=== PATIENT | male | born 1950 | race Caucasian/White ===

== ENCOUNTER 2019-11-15 10:51 | Inpatient (IN) | payer OTHER, SELFPAY ==
[2019-11-15] VITALS (11 sets, daily range): BP systolic 161–181; BP diastolic 81–95; PULSE 85–113; RESP 14–20; TEMP 36.7–37.6; O2SAT 93–98; BMI 27.4
--- NOTE | ~2019-11-15 | XR_ITS ---
EXAMINATION: XR chest 2V DATE: 11/19/2019 14:13 INDICATION: Possible right lung mass, COVID 19 positive TECHNIQUE: AP and lateral views of the chest are obtained. COMPARISON: 11/18/2019 FINDINGS: There are minimal airspace opacities at the left costophrenic angle. The nodule questioned on recent chest radiograph is not definitely identified. There is no pleural effusion or pneumothorax . The cardiomediastinal silhouette is normal. There are bridging osteophytes at multiple levels in th e spine, consistent with diffuse idiopathic skeletal hyperostosis (DISH). IMPRESSION: 1. No definite right lower lobe nodule identified. 2. Airspace opacities of the left costophrenic angle, consistent with COVID 19 pneumonia given clinic al history. Reviewed, dictated and finalized at location B. IMPRESSION: 1. No definite right lower lobe nodule identified. 2. Airspace opacities of the left costophrenic angle, consistent with COVID 19 pneumonia given clinical history.
--- NOTE | ~2019-11-15 | XR_ITS ---
EXAMINATION: XR hip LT 2V w AP pelvis DATE: 11/15/2019 11:45 INDICATION: Left hip pain and shortening TECHNIQUE: Anteroposterior view of the pelvis and anteroposterior and cross-table lateral views of th e left hip were obtained. COMPARISON: None. FINDINGS: Transcervical fracture of the proximal left femur with approximately 1.5 cm proximal migration, exter nal rotation and mild varus angulation. The femoral head remains normally located within the left gaviota tabulum. No other fractures identified. Mild bilateral hip osteoarthritis. Prominent hypertrophic abraham nge along the superolateral right acetabulum. IMPRESSION: 1. . Transcervical fracture of the proximal left femur with proximal migration and external rotation. Reviewed, dictated and finalized at location B.
--- NOTE | ~2019-11-15 | XR_ITS ---
XR chest 1V portable DATE: 11/18/2019 12:49 INDICATION: Covid-positive patient. Postoperative fevers. TECHNIQUE: Portable AP chest on 11/18/2019 at 1241 hours COMPARISON: 11/15/2019 AP chest 07/05/2017 two-view chest FINDINGS: There is focal infiltrate or mass density in the right lower lung field. PA and lateral stalin st radiographs are recommended, with CT thorax should the abnormal density persist. The lungs are oth erwise clear of infiltrate or consolidation. Normal heart size. Aortic calcification and minimal unfolding. No hilar or mediastinal enlargement is evident. Diffuse osteopenia. IMPRESSION: Focal infiltrate or mass density, right lower lung; continued follow-up is recommended, w ith initial PA and lateral chest radiographs; CT thorax may be indicated if the density does not reso lve within a short-term interval Reviewed, dictated and finalized at location A. IMPRESSION: Focal infiltrate or mass density, right lower lung; continued follo w-up is recommended, with initial PA and lateral chest radiographs; CT thorax m ay be indicated if the density does not resolve within a short-term interval
--- NOTE | ~2019-11-15 | XR_ITS ---
XR hip LT 1V DATE: 11/16/2019 11:13 INDICATION: Postoperative examination TECHNIQUE: Postoperative AP view only COMPARISON: 11/15/2019 pelvis and left hip FINDINGS: Status post left femoral head and neck resection and left total hip replacement. There is e xpected mild subcutaneous emphysema postoperatively. The pubic symphysis and sacroiliac joints are intact. IMPRESSION: Status post left total hip arthroplasty Reviewed, dictated and finalized at location A.
--- NOTE | ~2019-11-15 | XR_ITS ---
EXAMINATION: XR chest 1V DATE: 11/15/2019 11:45 INDICATION: Chest injury. TECHNIQUE: A single frontal view of the chest was obtained. COMPARISON: Chest 2 views 07/05/2017 FINDINGS: There is mild atelectasis at left lung base. There are mild airspace opacities in right mid and lower lung zones. No pleural effusion or pneumothorax. The heart size is normal. IMPRESSION: 1. Mild airspace opacities in right mid and lower lung zones, consistent with atelectasis versus pneu monia. Mild atelectasis at left lung base. Reviewed, dictated and finalized at location A. IMPRESSION: 1. Mild airspace opacities in right mid and lower lung zones, consistent with a telectasis versus pneumonia. Mild atelectasis at left lung base.
[2019-11-15] MEDS: MORPHINE SULFATE 4 MG/ML INJ IV PUSH ×3 (11:32→20:49)
--- NOTE | 2019-11-15 12:07 | ED.FALL ---
HPI - Fall General Chief Complaint: Fall Stated Complaint: FALL/L HIP PAIN Time Seen by Provider: 11/15/19 11:10 History of Present Illness HPI Narrative: Patient is a 68-year-old male who presents the ER with left hip pain. He was cleaning his pool on a 2 foot ledge when he slipped off that landed on his left side. Did not strike his head or lose consciousness. Sudden onset pain in his left hip. Unable to stand up. No numbness or tingling. Has shortening and external rotation on exam. Related Data Home Medications Medication Instructions Recorded Confirmed losartan 100 mg PO DAILY 11/15/19 11/15/19 Allergies Allergy/AdvReac Type Severity Reaction Status Date / Time No Known Allergies Allergy Verified 11/15/19 11:06 Review of Systems Review of Systems: All systems reviewed & are unremarkable except as noted in HPI and below Musculoskeletal: Musculoskeletal: Reports arthralgias, Denies joint swelling and Denies muscle cramps Neurologic: Denies focal weakness and Denies numbness PMFSH Past Medical History Medical History (Updated 11/15/19 @ 15:47 by Lakshmi Sanabria PA-C) Hypertension Tobacco dependence Surgical History Surgical History No history of previous surgery Social History Social History (Updated 11/15/19 @ 15:47 by Lakshmi Sanabria PA-C) Social History: Surrogate decision maker: Code status: Smoking status: Current some day smoker Second hand tobacco smoke exposure: No Alcohol intake: current Substance use: never Gender identity (if verbalized by the patient): Male Sexual Orientation (if Verbalized by the Patient): Straight or Heterosexual Spiritual care concerns: No Exam Narrative: Exam Narrative: GENERAL: Uncomfortable-appearing, well-nourished, and in no acute distress. HEAD: Normocephalic, atraumatic. ENT: Mucous membranes moist. CHEST: Clear to auscultation. No respiratory distress. HEART: Regular rate and rhythm. Normal peripheral pulses. EXTREMITIES: Shortening and external rotation of the left lower extremity. Tender at the left hip. No knee or ankle tenderness. Strong dorsalis pedis pulse. No sensory deficit in the left lower extremity. Abrasion of the left knee. SKIN: Warm, dry, no rash. NEURO: Alert and oriented x3. Course Course Emergency Course: Patient informed of results. Discussed case with Dr. Torres who would like the patient be on the medical service. Vital Signs Vital signs: Vital Signs Temperature 98.1 F 11/15/19 10:57 Pulse Rate 89 11/15/19 10:57 Respiratory Rate 18 11/15/19 10:57 Blood Pressure 172/93 H 11/15/19 10:57 Pulse Oximetry 98 11/15/19 10:57 Temperature 99.2 F 11/15/19 16:00 Pulse Rate 88 11/15/19 16:00 Respiratory Rate 18 11/15/19 16:00 Blood Pressure 180/85 H 11/15/19 16:00 Pulse Oximetry 96 11/15/19 16:00 MDM - Fall Lab Data Result diagrams: 11/15/19 16:16 11/15/19 16:16 Imaging Data Radiologist's impression: ITS Impressions Chest X-Ray 11/15/19 11:48 IMPRESSION: 1. Mild airspace opacities in right mid and lower lung zones, consistent with atelectasis versus pneumonia. Mild atelectasis at left lung base. Hip/Pelvis X-Ray 11/15/19 11:49 IMPRESSION: 1. . Transcervical fracture of the proximal left femur with proximal migration and external rotation. Discharge Plan Discharge Clinical Impression: Closed hip fracture Patient Disposition: Still a Patient Condition: Stable Discharge Date/Time: 11/15/19 13:57
--- NOTE | 2019-11-15 13:38 | PC.NURSE ---
Attempt to call report, floor unable to take at present. States will have the RN return call bakari.
--- NOTE | 2019-11-15 14:07 | ADMGEN ---
This patient, Jeet Breen, was admitted to 3 [facility] Surg Room 304-01. Patient/family oriented to hospital policies and general routines including ID bracelet, bed and alarms, visiting hours, pain management, procedures, bathroom and other care routines, personal items, smoking policy, room service/diet, and visiting hours. Valuables list has been completed. Information on how to activate the Rapid Response Team has been discussed. Patient/Family are encouraged to report perceived risks to care and to ask questions if they do not understand what they are told or what they should do.
--- NOTE | 2019-11-15 15:01 | PM.IMHP ---
H&P: HPI History of Present Illness Date/Time: 11/15/19 15:01 Chief complaint: hip fracture Narrative: Jeet Breen is a 68 year old male [facility] Past Medical History Medical History Hypertension Surgical History Surgical History No history of previous surgery Social History Social History Smoking status: Current some day smoker Second hand tobacco smoke exposure: No Alcohol intake: current Substance use: never Gender identity (if verbalized by the patient): Male Sexual Orientation (if Verbalized by the Patient): Straight or Heterosexual Spiritual care concerns: No Meds Home Medications and Allergies Home Medications Medication Instructions Recorded Confirmed Type losartan 100 mg PO DAILY 11/15/19 11/15/19 History Allergies Allergy/AdvReac Type Severity Reaction Status Date / Time No Known Allergies Allergy Verified 11/15/19 11:06 Vital Signs Vital Signs - 24 hr 11/15/19 10:57 11/15/19 11:31 11/15/19 12:21 Temperature 36.7 C Pulse Rate 85 99 97 Respiratory Rate 17 17 15 Blood Pressure 181/88 H 166/89 H 161/87 H Pulse Oximetry 96 97 93 11/15/19 12:30 11/15/19 12:31 11/15/19 12:45 Temperature Pulse Rate 100 104 H 93 Respiratory Rate 16 16 14 Blood Pressure 174/95 H Pulse Oximetry 96 95 95 11/15/19 12:46 11/15/19 13:00 Temperature Pulse Rate 91 92 Respiratory Rate 15 20 Blood Pressure 171/95 H Pulse Oximetry 95 Exam Extrem: General: capillary refill normal, no joint enlargement noted, no clubbing, cyanosis or edema and no calf tenderness bilaterally Right lower extremity: normal to inspection, full ROM, normal capillary refill and hip/thigh Details: normal to inspection and normal ROM; no tenderness and no swelling; no cyanosis and no edema Left lower extremity: normal capillary refill, edema, no joint enlargement, hip/thigh Details: tenderness, abnormal ROM Details: pain with active ROM and pain with passive ROM, ecchymosis and crepitus; no abrasions and no lacerations and foot Details: normal capillary refill, normal to inspection, vascular exam Details: dorsalis pedis pulse present, posterior tibial pulse present and normal capillary refill and motor-sensory exam light-touch normal; no tenderness; abnormal ROM and no cyanosis Assessment and Plan Assessment and plan (1) Closed hip fracture: Code(s): S72.009A - Fracture of unspecified part of neck of unspecified femur, initial encounter for closed fracture Status: Acute (2) Femoral neck fracture: Code(s): S72.009A - Fracture of unspecified part of neck of unspecified femur, initial encounter for closed fracture Status: Acute Assessment and Plan: 68 YO MALE WITH HX OF HTN FELL WHILE TRYING TO CLEAN HIS POOL AND NOW HE HAS A DISPLACED FEMORAL NECK FRACTURE. HE DENIES ANY OTHER PAIN. HE WILL REQUIRE LEFT TOTAL HIP REPLACEMENT. DUE TO HIS AGE AND HIS RELATIVELY GOOD HEALTH HE WOULD BE BETTER OFF HAVING A TOTAL HIP OPPOSED TO A KACI ARTHROPLASTY/BIPOLAR PROSTHESIS. WE DISCUSSED THE RISKS AND COMPLICATIONS OF SURGERY INCLUDING INFECTION DVT PE NEURO VASCULAR INJURY, DISLOCATION, LEG LENGTH DIFFERENCE AND THE NEED FOR FURTHER SURGERY. WE ALSO DISCUSSED THE OUTCOME DIFFERENCE BETWEEN A ROUTINE HIP REPLACEMENT AND ONE DONE FOR TRAUMATIC PURPOSES. HE UNDERSTANDS. WE WILL PROCEED ONCE HE HAS BEEN CLEARED BY MEDICINE
--- NOTE | 2019-11-15 15:47 | ECG_ITS ---
Measurements Intervals [place] Rate: 86 P: 48 CO: 198 QRS: -3 QRSD: 122 T: 57 QT: 363 QTc: 436 Interpretive Statements SINUS RHYTHM INTRAVENTRICULAR CONDUCTION DELAY DELAYED PRECORDIAL R/S TRANSITION BORDERLINE ECG Electronically Signed On 11-15-2019 16:46:52 CDT by Jed Victoria D.O.
[2019-11-15 16:23] LABS: Hematocrit 41.7 % (42.0-52.0); Hemoglobin 14.6 g/dL (14.0-18.0); Mean Corpuscular Volume 94.1 fl (80-100); Mean Platelet Volume 10.3 fl (7.4-10.4); Platelet Count Result 170 k/mm3 (150-375); Red Blood Count 4.43 M/mm3 (4.6-6.20); Red Cell Distribution Width 13.1 % (11.5-14.5); White Blood Count 7.4 K/mm3 (4.5-10.0)
[2019-11-15 16:33] LABS: INR 1.1; Prothrombin Time 14.1 Seconds (11.1-14.7)
[2019-11-15 17:19] LABS: Alanine Aminotransferase 78 U/L (4-50); Alkaline Phosphatase 98 U/L (38-126); Anion Gap 11 mmol/L (8-16); Aspartate Amino Transferase 70 U/L (17-59); Bilirubin,Total 0.5 mg/dL (0.2-1.3); Blood Urea Nitrogen 15 mg/dL (9-20); Calcium 8.6 mg/dL (8.4-10.2); Carbon Dioxide 24 mmol/L (22-30); Chloride 103 mmol/L (98-107); Estimated CRCL calculation 69 ml/min; Estimated Glomerular Filt Rate > 60; Glucose 115 mg/dL (75-110); Potassium 3.6 mmol/L (3.4-5.0); Sodium 138 mmol/L (137-145)
[2019-11-15 17:27] LABS: Add Urine Microscopic? YES; Appearance Urine Clear (Clear); Bilirubin Urine Negative (Negative); Blood Urine Negative (Negative); Color Urine Yellow (Yellow); Glucose Urine UA Negative (Negative); Ketones Urine 1+ mg/dL (Negative); Leukocyte Esterase Ur Negative LEU/UL (Negative); Mucus Urine Rare /lpf; Nitrate Urine Negative (Negative); Protein Urine 2+ mg/dL (Negative); Urobilinogen Urine Negative mg/dL (<2.0); WBC Urine 0-3 /hpf
--- NOTE | 2019-11-15 17:30 | PM.IMHP ---
H&P: HPI History of Present Illness Date/Time: 11/15/19 17:30 Chief complaint: Left hip pain after fall. Narrative: Jeet Breen is a 68-year-old male with hypertension who presented to the emergency department earlier today via EMS from home for evaluation of left hip pain after a fall. He was outside cleaning up the pool area, when he lost his balance and fell nearly 2 ft off of a ledge ?I had turned around to look at my tomatoes and lost my footing.? He had immediate pain in his left hip and was unable to get himself up. After perhaps an hour of trying to get his neighbor's attention, someone finally came out and called 911. He was indeed found to have a left hip fracture and is being admitted in this setting. He denies head trauma and loss of consciousness in the fall. He has some abrasions on his left elbow and knee, but sustained no other injuries. With further questioning he has not been feeling very well for about 1 week with generalized malaise, low-grade fever, and poor appetite. Occasionally he has had some shortness of breath as well, but nothing significant. After speaking with his doctor he was set to have a COVID test today. He has no known exposure to those positive for COVID-19. He has not had high fevers or any significant sinus congestion, rhinorrhea, or odynophagia. He has not had chest pain, pleuritic pain, palpitations, or significant cough. No nausea or vomiting, he just has a poor appetite. No anosmia or dysgeusia. At this time his pain is pretty well controlled, but seems to be worse with movement. He denies paresthesias, skin color, temperature changes distal to the fracture. Review of Systems Review of Systems: Narrative: Twelve systems were reviewed with pertinent positives and negatives as per HPI. Weight has remained stable. No history of cardiac or pulmonary disease. He has never had exertional chest pain. No history of venous thromboembolism. He has never had surgery. Except as documented, all other systems were reviewed and are negative. [facility] Past Medical History Medical History (Updated 11/15/19 @ 22:32 by Lakshmi Sanabria PA-C) Hypertension Tobacco dependence Surgical History Surgical History No history of previous surgery Family History Family History (Updated 11/15/19 @ 22:25 by Lakshmi Sanabria PA-C) Other No significant family history Social History Social History (Updated 11/15/19 @ 22:27 by Lakshmi Sanabria PA-C) Social History: Surrogate decision maker: Jr. Breen, son. Code status: Full code. Smoking status: Current some day smoker Second hand tobacco smoke exposure: No Additional smoking assessment comments: He smokes 1 pack of cigarettes every 3 days. Alcohol intake: current Drinks per week: 3 Substance use: never Additional living arrangements comments: Lives in his own home in [place]. Additional occupation/education comments: Retired. Gender identity (if verbalized by the patient): Male Sexual Orientation (if Verbalized by the Patient): Straight or Heterosexual Spiritual care concerns: No Meds Home Medications and Allergies Home Medications Medication Instructions Recorded Confirmed Type losartan 100 mg PO DAILY 11/15/19 11/15/19 History Allergies Allergy/AdvReac Type Severity Reaction Status Date / Time No Known Allergies Allergy Verified 11/15/19 11:06 Vital Signs Vital Signs - 24 hr 11/15/19 10:57 11/15/19 11:31 11/15/19 12:21 Temperature 98.1 F Pulse Rate 85 99 97 Respiratory Rate 17 17 15 Blood Pressure 181/88 H 166/89 H 161/87 H Pulse Oximetry 96 97 93 11/15/19 12:30 11/15/19 12:31 11/15/19 12:45 Temperature Pulse Rate 100 104 H 93 Respiratory Rate 16 16 14 Blood Pressure 174/95 H Pulse Oximetry 96 95 95 11/15/19 12:46 11/15/19 13:00 11/15/19 15:25 Temperature 99.0 F Pulse Rate 91 92 104 H Respira
[2019-11-16] VITALS (21 sets, daily range): BP systolic 132–184; BP diastolic 65–89; PULSE 87–108; RESP 14–20; TEMP 36.3–38.1; O2SAT 91–98
--- NOTE | 2019-11-16 00:21 | PC.NURSE ---
Patient NPO as of this time. All food and drinks removed from bedside.
[2019-11-16 01:52] LABS: SARS-CoV-2 RNA PCR Positive
[2019-11-16 06:25] LABS: Basophils Percent Auto 0.3 % (0.2-1.2); Eosinophils Percent Auto 0.3 % (0-4.4); Hematocrit 41.3 % (42.0-52.0); Hemoglobin 14.2 g/dL (14.0-18.0); Immature Granulocyte Absolute 0.04 K/mm3 (0.00-0.031); Immature Granulocyte Percent A 0.6 % (0-0.5); Lymphocytes Absolute Auto 1.09 K/mm3 (0.9-3.2); Lymphocytes Percent Auto 15.1 % (18.3-44.2); Mean Corpuscular HGB Conc 34.4 g/dl (32-36); Mean Corpuscular Hemoglobin 32.4 pg (26-34); Mean Corpuscular Volume 94.3 fl (80-100); Mean Platelet Volume 10.3 fl (7.4-10.4); Monocytes Absolute Auto 0.3 K/mm3 (0.1-0.6); Monocytes Percent Auto 3.9 % (2.6-8.5); Neutrophils Absolute Auto 5.8 K/mm3 (1.3-6.7); Neutrophils Percent Auto 79.8 % (45.5-73.1); Platelet Count Result 161 k/mm3 (150-375); Red Blood Count 4.38 M/mm3 (4.6-6.20); Red Cell Distribution Width 13.2 % (11.5-14.5); White Blood Count 7.2 K/mm3 (4.5-10.0)
[2019-11-16 06:39] LABS: INR 1.2; Prothrombin Time 14.4 Seconds (11.1-14.7)
[2019-11-16 06:40] LABS: Partial Thromboplastin Time 36.5 SECONDS (22.3-36.8)
--- NOTE | 2019-11-16 06:43 | WPDANESEPP ---
Anes - Eval Pre Procedure Procedure: Operation Date: 11/16/19 08:00 Proposed Procedures p Left Total Hip Arthroplasty - Skyler Torres MD Date/Time: 11/16/19 06:43 Surgeon: Skyler Winslow Pre Op Diagnosis: Left hip pain after fall. Patient Data Age: 68 Gender: M Height: 5 ft 10 in Weight: 86.7 kg Last Vital Signs Temp 37.1 C 11/16/19 04:00 Pulse 108 H 11/16/19 04:00 Resp 20 11/16/19 04:00 BP 150/86 H 11/16/19 04:00 Pulse Ox 96 11/16/19 04:00 Allergies Allergy/AdvReac Type Severity Reaction Status Date / Time No Known Allergies Allergy Verified 11/15/19 11:06 Home Medications Medication Instructions Recorded Confirmed Type losartan 100 mg PO DAILY 11/15/19 11/15/19 History Laboratory Tests 11/15/19 11/15/19 11/15/19 16:16 16:16 16:16 WBC 7.4 K/mm3 K/mm3 (4.5-10.0) RBC 4.43 M/mm3 L M/mm3 (4.6-6.20) Hgb 14.6 g/dL g/dL (14.0-18.0) Hct 41.7 % L % (42.0-52.0) MCV 94.1 fl fl (80-100) MCH 33.0 pg pg (26-34) MCHC 35.0 g/dl g/dl (32-36) RDW 13.1 % % (11.5-14.5) Plt Count 170 k/mm3 k/mm3 (150-375) MPV 10.3 fl fl (7.4-10.4) Immature Gran % (Auto) Neut % (Auto) Lymph % (Auto) [place] % (Auto) Eos % (Auto) Baso % (Auto) Lymph # (Auto) [place] # (Auto) Eos # (Auto) Baso # (Auto) Abs Immat Gran (auto) Absolute Neuts (auto) Absolute Nucleated RBC Nucleated RBC % PT 14.1 Seconds Seconds (11.1-14.7) INR 1.1 APTT 31.0 SECONDS SECONDS (22.3-36.8) Sodium 138 mmol/L mmol/L (137-145) Potassium 3.6 mmol/L mmol/L (3.4-5.0) Chloride 103 mmol/L mmol/L (98-107) Carbon Dioxide 24 mmol/L mmol/L (22-30) Anion Gap 11 mmol/L mmol/L (8-16) BUN 15 mg/dL mg/dL (9-20) Creatinine 0.90 mg/dL mg/dL (0.7-1.3) Estim Creat Clear Calc 69 ml/min ml/min Estimated GFR > 60 (59 - ) Glucose 115 mg/dL H mg/dL (75-110) Calcium 8.6 mg/dL mg/dL (8.4-10.2) Magnesium Ferritin Total Bilirubin 0.5 mg/dL mg/dL (0.2-1.3) AST 70 U/L H U/L (17-59) ALT 78 U/L H U/L (4-50) Alkaline Phosphatase 98 U/L U/L (38-126) Lactate Dehydrogenase C-Reactive Protein Total Protein 7.0 g/dL g/dL (6.3-8.2) Albumin 4.0 g/dL g/dL (3.5-5.1) Urine Color Urine Appearance Urine pH Ur Specific [place] Urine Protein Urine Glucose (UA) Urine Ketones Ur Blood (Man) Urine Nitrate Urine Bilirubin Urine Urobilinogen Leukocyte Esterase Rfl Urine RBC Urine WBC Hyaline Casts Urine Mucus SARS-CoV-2 RNA (RT-PCR) 11/15/19 11/15/19 11/16/19 16:16 17:07 06:07 WBC 7.2 K/mm3 K/mm3 (4.5-10.0) RBC 4.38 M/mm3 L M/mm3 (4.6-6.20) Hgb 14.2 g/dL g/dL (14.0-18.0) Hct 41.3 % L % (42.0-52.0) MCV 94.3 fl fl (80-100) MCH 32.4 pg pg (26-34) MCHC 34.4 g/dl g/dl (32-36) RDW 13.2 % % (11.5-14.5) Plt Count 161 k/mm3 k/mm3 (150-375) MPV 10.3 fl fl (7.4-10.4) Immature Gran % (Auto) 0.6 % H % (0-0.5) Neut % (Auto) 79.8 % H % (45.5-73.1) Lymph % (Auto) 15.1 % L % (18.3-44.2) [place] % (Auto) 3.9 % % (2.6-8.5) Eos % (Auto) 0.3 % % (0-4.4) Baso % (Auto) 0.3 % % (0.2-1.2) Lymph # (Auto) 1.09 K/mm3 K/mm3 (0.9-3.2) [place] # (A
[2019-11-16 07:19] LABS: Alanine Aminotransferase 72 U/L (4-50); Albumin Level 3.8 g/dL (3.5-5.1); Alkaline Phosphatase 85 U/L (38-126); Anion Gap 11 mmol/L (8-16); Aspartate Amino Transferase 64 U/L (17-59); Bilirubin,Total 0.8 mg/dL (0.2-1.3); Blood Urea Nitrogen 16 mg/dL (9-20); Calcium 8.3 mg/dL (8.4-10.2); Carbon Dioxide 22 mmol/L (22-30); Chloride 101 mmol/L (98-107); Estimated CRCL calculation 77 ml/min; Estimated Glomerular Filt Rate > 60; Glucose 118 mg/dL (75-110); Lactate Dehydrogenase 565 U/L (313-618); Magnesium 1.9 mg/dL (1.6-2.3); Potassium 3.3 mmol/L (3.4-5.0); Sodium 134 mmol/L (137-145)
[2019-11-16 07:39] LABS: CRP 16.2 mg/dL (<1.0)
[2019-11-16] MEDS: MORPHINE SULFATE 4 MG/ML INJ IV PUSH (07:40)
[2019-11-16] MEDS: LACTATED RINGERS 1,000 ML 30 ML IV CONT ×2 (08:30→11:00)
--- NOTE | 2019-11-16 08:38 | PM.PNORT ---
Subjective Subjective Date/Time Seen: 11/16/19 08:38 Interval history: PATIENT HAS RECEIVED A NEW DIAGNOSIS OF COVID 19. HE CONTINUES TO BE MEDICALLY STABLE. GIVEN THE URGENCY OF HIS ORTHOPEDIC PROBLEM I FEEL IT IS NECESSARY TO CONTINUE WITH CURRENT DECISION FOR TREATMENT OF DISPLACED FEMORAL NECK FRACTURE IN A PATIENT WHO IS OTHERWISE HEALTHY AND VERY ACTIVE. DELAYING TREATMENT MAY CAUSE INCREASED IN MORBIDITY AND MORTALITY GIVEN HIS ORTHOPEDIC DIAGNOSIS. Objective Data Vital Signs Vital Signs: Vital Signs - 24 hr 11/15/19 10:57 11/15/19 11:31 11/15/19 12:21 Temperature 36.7 C Pulse Rate 85 99 97 Respiratory Rate 17 17 15 Blood Pressure 181/88 H 166/89 H 161/87 H Pulse Oximetry 96 97 93 11/15/19 12:30 11/15/19 12:31 11/15/19 12:45 Temperature Pulse Rate 100 104 H 93 Respiratory Rate 16 16 14 Blood Pressure 174/95 H Pulse Oximetry 96 95 95 11/15/19 12:46 11/15/19 13:00 11/15/19 15:25 Temperature 37.2 C Pulse Rate 91 92 104 H Respiratory Rate 15 20 20 Blood Pressure 171/95 H 179/81 H Pulse Oximetry 95 95 11/15/19 16:00 11/15/19 20:00 11/16/19 00:00 Temperature 37.3 C 37.6 C 37.4 C Pulse Rate 88 113 H 101 H Respiratory Rate 18 20 20 Blood Pressure 180/85 H 179/88 H 184/86 H Pulse Oximetry 96 94 96 11/16/19 04:00 11/16/19 07:47 Temperature 37.1 C 36.8 C Pulse Rate 108 H 96 Respiratory Rate 20 16 Blood Pressure 150/86 H 135/82 Pulse Oximetry 96 96 Intake/Output Intake/Output: Intake & Output 11/13/19 11/14/19 11/15/19 11/16/19 23:59 23:59 23:59 23:59 Intake Total 340 200 Output Total 750 550 Balance -410 -350 Meds/Results Medications: Active Medications Generic Name Dose Route Start Last Admin Trade Name Freq PRN Reason Stop Dose Admin Acetaminophen 650 mg 11/15/19 12:44 Tylenol Tablet PO Q4H PRN Mild Pain (1-3) or Fever Hydrocodone Bitart/Acetaminophen 1 tab 11/15/19 12:44 [place] 5-325 Mg PO Q4H PRN Pain Rated 4-6 Hydralazine HCl 5 mg 11/15/19 22:35 Apresoline Hcl Inj IV PUSH Q6H PRN SBP > 165 or DBP > 105 Lactated Ringer's 1,000 mls @ 30 mls/hr 11/15/19 15:25 Lr - Lactated Ringers Iv IV CONT .Q24H LEXI Losartan Potassium 100 mg 11/16/19 09:00 11/16/19 07:56 Cozaar PO Not Given DAILY LEXI Morphine Sulfate 4 mg 11/15/19 12:44 11/16/19 07:40 Morphine Sulfate Inj IV PUSH 4 mg Q2H PRN Administration Pain Rated 7-10 Ondansetron HCl 4 mg 11/15/19 12:44 Zofran Inj IV PUSH Q4H PRN Nausea Radiology Results: ITS Impressions Chest X-Ray 11/15/19 11:48 IMPRESSION: 1. Mild airspace opacities in right mid and lower lung zones, consistent with atelectasis versus pneumonia. Mild atelectasis at left lung base. Hip/Pelvis X-Ray 11/15/19 11:49 IMPRESSION: 1. . Transcervical fracture of the proximal left femur with proximal migration and external rotation. Labs Labs: Laboratory Results - last 24 hr 11/15/19 11/15/19 11/15/19 16:16 16:16 16:16 WBC 7.4 RBC 4.43 L Hgb 14.6 Hct 41.7 L MCV 94.1 MCH 33.0 MCHC 35.0 RDW 13.1 Plt Count 170 MPV 10.3 Immature Gran % (Auto) Neut % (Auto) Lymph % (Auto) [place] % (Auto) Eos % (Auto) Baso % (Auto) Lymph # (Auto) [place] # (Auto) Eos # (Auto) Baso # (Auto) Abs Immat Gran (auto) Absolute Neuts (auto) Absolute Nucleated RBC Nucleated RBC % PT 14.1 INR 1.1 APTT 31.0 Sodium 138 Potassium 3.6 Chloride 103 Carbon Dioxide 24 Anion Gap 11 BUN 15 Creatinine 0.90 Estim Creat Clear Calc 69 Estimated GFR > 60 Glucose 115 H Calcium 8.6 Magnesium Total Bilirubin 0.5 AST 70 H ALT 78 H Alkaline Phosphatase 98 Lactate Dehydrogenase C-Reactive Protein Total Protein 7.0 Albumin 4.0 Urine Color Urine Appearance Urine pH Ur Specific [place] Urine P
--- NOTE | 2019-11-16 08:50 | WPDANESEFPP ---
Anes - Eval Final PreProcedure Day of Procedure 11/16/19 08:50 Patient weight: overweight Heart: regular rate and rhythm Lungs: clear to auscultation Airway: Mallampati scale class II Neurological: alert and oriented Last oral intake: >/= 8 hours ASA classification: III Emergent: yes Anesthetic plan: proceed Anesthesia type and monitoring: general ETT Informed Consent: Prior to the start of this case, the patient's anesthetic plan of GA with ETT and its attendant risks in this Covid positive patient were discussed at length with the surgeon who insists that this operation be done today. He states the risks for poor outcome due to Covid are not increased if we proceed at this time and there is no other acceptable way to manage this fracture. The OR team will take all precautions available to minimize risk of infection to themselves and others. The risks and benefits were discussed with the patient immediately prior to surgery. Questions were solicited and answers provided to the satisfaction of the patient.
[2019-11-16] MEDS: ceFAZolin SODIUM 1 GM VIAL 2 GM IV PUSH (08:56)
[2019-11-16] MEDS: TRANEXAMIC ACID 1,000 MG/10 ML AMPUL 1000 MG IV PUSH ×2 (09:00→10:11)
--- NOTE | 2019-11-16 09:27 | PC.NURSE ---
To OR per bed, IV 18 LFA. Report given to MEDICAL AFFAIRS MANAGER.
--- NOTE | 2019-11-16 11:42 | SUR.PHASEI ---
Tried to call Dr. Torres's cell for transfer orders to return to the floor.
--- NOTE | 2019-11-16 11:50 | PM.OP ---
Procedure Note - Brief Procedure Note - Brief Date of procedure: 11/16/19 Pre-op diagnosis: Left hip pain after fall. LEFT FEMORAL NECK FRACTURE Post-op diagnosis: same Procedure performed: L KAYCE Anesthesia: GETA Surgeon: Skyler Torres MD Estimated blood loss (mL): 200 Drains: No Complications: No immediate complications Condition: stable Disposition: PACU
--- NOTE | 2019-11-16 11:51 | P.OP_ITS ---
Procedure Note - Detailed Date of procedure: 11/16/19 Pre-op diagnosis: Left hip pain after fall. LEFT FEMORAL NECK FRACTURE Post-op diagnosis: same Procedure performed: LEFT KAYCE Description of procedure: THE PATIENT WAS TAKEN TO THE OPERATING ROOM IN STABLE CONDITION. HE WAS PLACED IN THE LATERAL DECUBITUS AND THE LEFT LOWER EXTREMITY WAS PREPPED AND DRAPED IN THE STERILE FASHION. INCISION WAS MADE IN THE POSTERI OR LATERAL SIDE OF THE HIP, DOWN TO THE FASCIA LAYER. THE FASCIA WAS INCISED. THE HIP WAS EXPOSED. THE SHORT EXTERNAL ROTATORS WERE EXPOSED AND THERE WAS A LARGE HEMATOMA. THE CAPSULE WAS INCISED EXPOSING THE FRACTURE. THE FEMORAL HEAD WAS REMOVED. AN OSTEOTOMY WAS MADE TO THE EMORAL NECK ABOUT 1 CM PROXIMAL TO THE LESSER TROCHANTER. THE ACETABULUM WAS EXPOSED. THERE WAS MODERATE DJD SEEN. THE ACETABULUM WAS REAMED TO 49 MM. A 49 MM TRIAL WAS PLACED IN 35 DEG OF ABDUCTION AND ANTEVERSION WAS IN ALIRNMENT WITH THE TYRANS ACETABULAR LIGAMENT. THE FIT WAS EXCELLENT. THE TRIAL WAS REMOVED. A 50 MM BIOMET G7 COMPONENT WAS THEN TAPPED IN TO PLACE IN 35 DEG OF ABDUCTION AND ANTEVERSION IN ALIGNMENT WITH THE TRANSVERSE ACETABULAR LIGAMENT. 2 SCREWS WERE PLACED THAT HAD EXCELLENT PURCHASE. THE ACETABULAR LINER WAS PLACED AND CHECKED FOR STABILITY. NEXT THE FEMUR WAS PREPARED WITH INITIAL CANAL FINDER THEN SEQUENCIAL BROACHING TILL A 12 BROACH FIT WELL IN 15 OF ANTE VERSION. A +3 STANDAR OFFSET NECK WITH 36 MM HEAD TRIAL WAS PLACED. THE ONESIMO TEST WAS EXCELLENT AND THE STABILTY IN FLEXION AND ROATION WAS EXCELLENT. LEG LENTHS WERE GROSSLY EQUAL. TRIAL WERE REMOVED. A TAPERLOC BIOMET 12 STEM WAS PLACED WITH A STANDARD OFFSET NECK THE FIT WAS EXCELLENT IN 15 DEG OF ANTEVERSION. A +3 CERAMIC 36 MM FEMORAL HEAD WAS PLACED. THE HIP WAS TRIALED AND THRE STABILITY WAS EXCELLENT WERE THE LEG LENGTHS AND THE SCHUK TEST. THE WOUND WAS IRRIGATED WITH STERILE BETADINE AND WATER FOR 3 MIN. THEN WASHED AGIN. THE CAPSULE AND THE EXTERNAL ROTATORS WERE APPROXIMATED WITH NUMBER 1 VICRYL. THE FASCIA WITH No 2 QUIL AND THE SUB CUTANEOUS LAYER WITH 2-0 ABSORBABLE SUTURE WITH A RUNNING 2-0 SUBCUTICULAR LAYER WELL. DERMABOND WAS PLACED AND STERILE DRESSING WAS APPLIED. PATIENT WAS PLACED BACK ON TO THE SUPINE POSITION AND WAS EXTUBATED. Anesthesia: GETA Surgeon: Skyler Torres MD Estimated blood loss (mL): 450 Drains: No Complications: No immediate complications Condition: stable Disposition: PACU
[2019-11-16 13:01] LABS: Hematocrit 38.2 % (42.0-52.0); Hemoglobin 13.1 g/dL (14.0-18.0)
--- NOTE | 2019-11-16 14:11 | PM.IMPN ---
Progress Note: A&P Assessment and Plan (1) Closed left hip fracture: Code(s): S72.002A - Fracture of unspecified part of neck of left femur, initial encounter for closed fracture Status: Acute Assessment and Plan: Patient sustained a mechanical fall on 11/15/2019. Hip x-ray showed transcervical fracture of the proximal left femur with proximal migration external rotation. He underwent surgical repair by Dr. Torres. He tolerated the procedure well and his pain is well controlled. Weight bearing, incision care, DVT prophylaxis per Dr. Torres Analgesics as needed for pain PT and OT consult is appreciated. Patient lives at home and is independent in ADLs. He would like to return home with a walker. Will evaluate his progress with therapy. (2) Hypertension: Qualifiers: Hypertension type: essential hypertension Qualified Code(s): I10 - Essential (primary) hypertension Code(s): I10 - Essential (primary) hypertension Status: Acute Assessment and Plan: blood pressures reviewed today and have been elevated in the 170s. Postoperatively, BP has been better controlled in the 130s. Increase is probably secondary to pain. Continue losartan and monitor daily. Hydralazine available p.r.n. with parameters. (3) Tobacco dependence: Code(s): F17.200 - Nicotine dependence, unspecified, uncomplicated Status: Acute Assessment and Plan: Patient smokes 1 pack of cigarettes approximately every 3 days. Smoking cessation has been discussed and patient understands (4) COVID-19: Code(s): U07.1 - COVID-19 Status: Acute Assessment and Plan: Symptoms ongoing for approximately 10-12 days. Tested positive on 11/15/2019. He is feeling much better. He is afebrile. Prior to procedure, he was tolerating room air. He is now on 1 L O2 postoperatively. Continue isolation precautions At this time, will hold on initiating IV dexamethasone as I suspect Oxygen requirements are related to postoperative state and not respiratory infection. Monitor respiratory status closely. Acetaminophen as needed for fever. Bronchodilators and mucolytic therapy as needed. Subjective Date/time seen: 11/16/19 14:11 Interval history: Date of service: 11/16/2019 Mr. Breen is a 68-year-old male with a history hypertension tobacco dependence who is seen in follow-up for closed left hip fracture After sustaining a mechanical fall on 11/15/2019. He has just returned from surgery performed by Dr. Torres. He tolerated the procedure well and has no pain at this time. He had been feeling ill for about 10 days with low-grade fevers and occasional cough. He was found to be positive for COVID-19. He is doing well from that standpoint and denies any fevers, shortness of breath, cough, loss of taste or smell, nausea, vomiting, or body aches. He had a little bit of diarrhea the past couple days at home but has not had a bowel movement in 2 days. He has not eaten much since yesterday because he was NPO for surgery. He denies dysuria or hematuria. Review of Systems Review of Systems: Narrative: A 12 point review of systems was reviewed with pertinent positives and negatives as per HPI. Exam Narrative: Exam Narrative: Mr. Breen is a well-nourished 69-year-old male who is lying supine in bed. He appears comfortable and is in no acute respiratory distress. HR 108, BP 150/86, R 20, T 98.8?, 96% on room air Neuro: awake, alert and oriented x4, speech clear, no focal neuro deficits noted HEENMT: normocephalic, atraumatic, EOMI, sclerae anicteric, moist oral mucosa, tongue midline, nares patent Neck: supple, no lymphadenopathy Respiratory: clear to auscultation bilaterally, nonlabored breathing Cardio: regular rate, regular rhythm with S1-S2 Abdomen: nondistended, normoactive bowel sounds, soft, nontender to palpation Extremities: left hip with bandage that is C/D
[2019-11-16] MEDS: ceFAZolin 2 GM/D5W 50 ML 2 GM/50 ML BAG IVPB (17:02)
[2019-11-16] MEDS: DOCUSATE SODIUM 100 MG CAPSULE PO (17:02)
[2019-11-16] MEDS: ACETAMINOPHEN 325 MG TABLET 650 MG PO (19:54)
[2019-11-16] MEDS: RIVAROXABAN 10 MG TABLET PO (21:32)
[2019-11-17] VITALS (10 sets, daily range): BP systolic 109–170; BP diastolic 64–91; PULSE 54–111; RESP 18–20; TEMP 36.7–39.4; O2SAT 90–96
[2019-11-17] MEDS: ceFAZolin 2 GM/D5W 50 ML 2 GM/50 ML BAG IVPB ×2 (00:11→08:14)
[2019-11-17] MEDS: ACETAMINOPHEN 325 MG TABLET 650 MG PO ×2 (04:25→21:32)
[2019-11-17 06:27] LABS: Basophils Percent Auto 0.2 % (0.2-1.2); Hematocrit 33.9 % (42.0-52.0); Hemoglobin 11.9 g/dL (14.0-18.0); Immature Granulocyte Absolute 0.08 K/mm3 (0.00-0.031); Immature Granulocyte Percent A 0.9 % (0-0.5); Lymphocytes Absolute Auto 0.93 K/mm3 (0.9-3.2); Lymphocytes Percent Auto 10.5 % (18.3-44.2); Mean Corpuscular HGB Conc 35.1 g/dl (32-36); Mean Corpuscular Hemoglobin 33.1 pg (26-34); Mean Corpuscular Volume 94.2 fl (80-100); Mean Platelet Volume 10.7 fl (7.4-10.4); Monocytes Absolute Auto 0.3 K/mm3 (0.1-0.6); Monocytes Percent Auto 3.3 % (2.6-8.5); Neutrophils Absolute Auto 7.6 K/mm3 (1.3-6.7); Neutrophils Percent Auto 85.1 % (45.5-73.1); Platelet Count Result 147 k/mm3 (150-375); Red Cell Distribution Width 12.9 % (11.5-14.5); White Blood Count 8.9 K/mm3 (4.5-10.0)
[2019-11-17 06:41] LABS: Alanine Aminotransferase 60 U/L (4-50); Albumin Level 3.3 g/dL (3.5-5.1); Alkaline Phosphatase 66 U/L (38-126); Anion Gap 7 mmol/L (8-16); Aspartate Amino Transferase 86 U/L (17-59); Bilirubin,Total 0.8 mg/dL (0.2-1.3); Blood Urea Nitrogen 21 mg/dL (9-20); Calcium 8.1 mg/dL (8.4-10.2); Carbon Dioxide 26 mmol/L (22-30); Chloride 99 mmol/L (98-107); Estimated CRCL calculation 63 ml/min; Estimated Glomerular Filt Rate > 60; Glucose 124 mg/dL (75-110); Lactate Dehydrogenase 546 U/L (313-618); Potassium 3.6 mmol/L (3.4-5.0); Sodium 132 mmol/L (137-145)
[2019-11-17 07:04] LABS: CRP 21.7 mg/dL (<1.0)
[2019-11-17] MEDS: DOCUSATE SODIUM 100 MG CAPSULE PO ×2 (08:14→17:08)
[2019-11-17] MEDS: CELECOXIB 200 MG CAPSULE PO (08:14)
[2019-11-17] MEDS: LOSARTAN POTASSIUM 100 MG TABLET PO (08:14)
--- NOTE | 2019-11-17 10:42 | PM.IMPN ---
Progress Note: A&P Assessment and Plan (1) Closed left hip fracture: Qualifiers: Encounter type: initial encounter Qualified Code(s): S72.002A - Fracture of unspecified part of neck of left femur, initial encounter for closed fracture Code(s): S72.002A - Fracture of unspecified part of neck of left femur, initial encounter for closed fracture Status: Acute Assessment and Plan: Patient sustained a mechanical fall on 11/15/2019. Hip x-ray showed transcervical fracture of the proximal left femur with proximal migration and external rotation. He underwent surgical repair by Dr. Torres on 11/16/2019. He tolerated the procedure well and his pain is well controlled. Weight bearing, incision care, DVT prophylaxis per Dr. Torres Analgesics as needed for pain PT and OT consult is appreciated. Patient lives at home and is independent in ADLs. He would like to return home with a walker. Will evaluate his progress with therapy. (2) Hypertension: Qualifiers: Hypertension type: essential hypertension Qualified Code(s): I10 - Essential (primary) hypertension Code(s): I10 - Essential (primary) hypertension Status: Acute Assessment and Plan: Blood pressures reviewed today and have improved in the 130-150 systolic range. Prior elevated readings probably secondary to pain. Continue losartan and monitor daily. (3) Tobacco dependence: Code(s): F17.200 - Nicotine dependence, unspecified, uncomplicated Status: Acute Assessment and Plan: Patient smokes 1 pack of cigarettes approximately every 3 days. Smoking cessation has been discussed and patient understands (4) COVID-19: Code(s): U07.1 - COVID-19 Status: Acute Assessment and Plan: Symptoms ongoing for approximately 10-12 days. Tested positive on 11/15/2019. He is feeling much better. He had a fever of 102.9 early this morning but has remained afebrile since. He is maintaining adequate oxygenation on room air. Continue isolation precautions Patient is not a candidate for dexamethasone or remdesivir given onset of symptoms and lack of oxygen requirement. Acetaminophen as needed for fever. Bronchodilators and mucolytic therapy as needed. (5) Urinary retention: Code(s): R33.9 - Retention of urine, unspecified Status: Acute Assessment and Plan: Probably secondary to anesthesia. Patient reports that he was having some frequency and hesitancy last night, therefore was bladder scanned which showed >500cc residual urine. Straight cath returned 425 cc. Following this, patient Has been able to urinate on his own. He did complain of mild dysuria. UA on 11/15/2019 was unremarkable. Closely monitor I&Os. Will repeat UA with reflex given complaints of dysuria Subjective Date/time seen: 11/17/19 10:42 Interval history: Date of service: 11/17/2019 Mr. Breen is a 68-year-old male with a history of hypertension and tobacco dependence who is seen in follow-up for closed left hip fracture after sustaining a mechanical fall on 11/15/2019. He underwent surgical repair on 11/16/[address] Torres. His pain is well controlled today. At rest, he has no pain whatsoever. He complains of some discomfort with movement or with transferring. He reported some issues with urinary retention Last night. He has been able to urinate on his own today and denies urgency, hesitancy, or frequency. He endorsed very mild dysuria. No hematuria. He has not had a bowel movement. He did not eat much of his breakfast today because he did not like it. He denies abdominal pain, nausea, vomiting, fever, or chills. He denies shortness of breath, cough, LOMELI, or chest pain. Review of Systems Review of Systems: Narrative: A 12 point review of systems was reviewed with pertinent positives and negatives as per HPI. Exam Narrative: Exam Narrative: Mr. Breen is a we
--- NOTE | 2019-11-17 10:51 | P.PNAN_ITS ---
Anes - Prog Note Post-Op Date/Time: 11/17/19 10:51 Cardiovascular status: normal Respiratory status: normal Airway patency: baseline Mental status: baseline Post-Op hydration status: normal Vital Signs: Last Vital Signs Temp 37.0 C 11/17/19 08:00 Pulse 101 H 11/17/19 08:00 Resp 20 11/17/19 08:00 BP 141/91 H 11/17/19 08:00 Pulse Ox 94 11/17/19 08:00 Pain Score (VAS): 4 I/O: Intake & Output 11/16/19 11/17/19 11/17/19 23:59 07:59 15:59 Intake Total 670 450 50 Output Total 725 725 Balance -55 -275 50 Laboratory Tests 11/17/19 06:15 11/17/19 06:15 11/16/19 11/17/19 11/17/19 12:51 06:15 06:15 WBC RBC Hgb 13.1 L Hct 38.2 L MCV MCH MCHC RDW Plt Count MPV Immature Gran % (Auto) Neut % (Auto) Lymph % (Auto) [place] % (Auto) Eos % (Auto) Baso % (Auto) Lymph # (Auto) [place] # (Auto) Eos # (Auto) Baso # (Auto) Abs Immat Gran (auto) Absolute Neuts (auto) Absolute Nucleated RBC Nucleated RBC % Sodium 132 L Potassium 3.6 Chloride 99 Carbon Dioxide 26 Anion Gap 7 L BUN 21 H Creatinine 1.00 Estim Creat Clear Calc 63 Estimated GFR > 60 Glucose 124 H Calcium 8.1 L Ferritin 1440.00 H Total Bilirubin 0.8 AST 86 H ALT 60 H Alkaline Phosphatase 66 Lactate Dehydrogenase 546 C-Reactive Protein 21.7 H Total Protein 6.0 L Albumin 3.3 L 11/17/19 06:15 WBC 8.9 RBC 3.60 L Hgb 11.9 L Hct 33.9 L MCV 94.2 MCH 33.1 MCHC 35.1 RDW 12.9 Plt Count 147 L MPV 10.7 H Immature Gran % (Auto) 0.9 H Neut % (Auto) 85.1 H Lymph % (Auto) 10.5 L [place] % (Auto) 3.3 Eos % (Auto) 0.0 Baso % (Auto) 0.2 Lymph # (Auto) 0.93 [place] # (Auto) 0.3 Eos # (Auto) 0.0 Baso # (Auto) 0.0 Abs Immat Gran (auto) 0.08 H Absolute Neuts (auto) 7.6 H Absolute Nucleated RBC 0.0 Nucleated RBC % 0.0 Sodium Potassium Chloride Carbon Dioxide Anion Gap BUN Creatinine Estim Creat Clear Calc Estimated GFR Glucose Calcium Ferritin Total Bilirubin AST ALT Alkaline Phosphatase Lactate Dehydrogenase C-Reactive Protein Total Protein Albumin Post-procedural complaints: none Patient Feedback: Patient satisfied with anesthetic care.
[2019-11-17] MEDS: polyethylene glycoL 3350 17 GM POWD.PACK PO (11:36)
[2019-11-17] MEDS: SODIUM CHLORIDE 0.9% IV 500 ML 999 ML IV CONT (11:36)
--- NOTE | 2019-11-17 13:15 | PM.PNORT ---
Progress Note: A&P Additional Plan POD 1 DOING WELL ASIDE FROM SYNCOPAL EPISODE. HIS PAIN IS WELL CONTROLLED. CONTINUE PT IF ABLE TO WALK WITHOUT DIZZINESS. Subjective Subjective Date/Time Seen: 11/17/19 13:15 POD 1 DOING WELL. NO CALF PAIN. HAD SYNCOPAL EPISODE TODAY. NOW STABLE HGB 11 Exam Extrem: Other: VSS AFEBRILE DRESSING DRY NV INTACT CALF SOFT NON TENDER Objective Data Vital Signs Vital Signs: Vital Signs - 24 hr 11/16/19 13:40 11/16/19 14:00 11/16/19 14:40 Temperature 36.5 C 36.5 C Pulse Rate 102 H 105 H Respiratory Rate 18 16 Blood Pressure 132/87 136/89 Pulse Oximetry 95 97 97 11/16/19 16:42 11/16/19 18:19 11/16/19 19:54 Temperature 36.6 C 36.6 C 38.1 C H Pulse Rate 87 96 Respiratory Rate 18 18 Blood Pressure 135/78 135/82 Pulse Oximetry 93 91 11/16/19 20:00 11/16/19 21:40 11/16/19 23:57 Temperature 38.1 C H 36.8 C 37.3 C Pulse Rate 88 95 Respiratory Rate 18 18 Blood Pressure 141/86 H 153/79 H Pulse Oximetry 93 94 11/17/19 04:00 11/17/19 04:25 11/17/19 05:41 Temperature 39.4 C H 39.4 C H 37.2 C Pulse Rate 54 L Respiratory Rate 18 Blood Pressure 138/85 Pulse Oximetry 93 11/17/19 08:00 11/17/19 11:13 11/17/19 11:15 Temperature 37.0 C Pulse Rate 101 H 111 H Respiratory Rate 20 Blood Pressure 141/91 H 120/67 109/64 Pulse Oximetry 94 Intake/Output Intake/Output: Intake & Output 11/14/19 11/15/19 11/16/19 11/17/19 23:59 23:59 23:59 23:59 Intake Total 340 1020 1100 Output Total 750 7595 725 Balance -410 -255 375 Meds/Results Medications: Active Medications Generic Name Dose Route Start Last Admin Trade Name Freq PRN Reason Stop Dose Admin Acetaminophen 650 mg 11/16/19 12:34 11/17/19 04:25 Tylenol Tablet PO 650 mg Q6H PRN Administration Mild Pain (1-3) or Fever Hydrocodone Bitart/Acetaminophen 1 tab 11/16/19 12:34 11/17/19 00:10 [place] 7.5-325 Mg PO 1 tab Q3H PRN Administration Pain Rated 4-6 Albuterol 2 puff 11/16/19 14:32 Proventil Hfa INHALATION QIDRT PRN Shortness Of Breath Celecoxib 200 mg 11/17/19 09:00 11/17/19 08:14 Celebrex PO 200 mg DAILY LEXI Administration Diazepam 5 mg 11/16/19 12:34 Valium Po PO Q6H PRN Anxiety/Muscle Spasm Docusate Sodium 100 mg 11/16/19 17:00 11/17/19 08:14 Colace Capsule PO 100 mg BID [facility] Administration Guaifenesin 600 mg 11/16/19 14:32 Mucinex 12 Hr Tab PO Q12HR PRN Cough Losartan Potassium 100 mg 11/16/19 09:00 11/17/19 08:14 Cozaar PO 100 mg DAILY [facility] Administration Magnesium Hydroxide 30 ml 11/16/19 12:34 Milk Of Magnesia PO BID PRN Constipation Morphine Sulfate 3 mg 11/16/19 12:34 Morphine Sulfate Inj IV PUSH Q3H PRN Pain Rated 7-10 Naloxone HCl 0.1 mg 11/16/19 12:34 Narcan IV PUSH Q2M PRN Opiate Reversal Oxycodone/Acetaminophen 1 tablet 11/16/19 12:34 Percocet 5-325 Mg PO Q4H PRN Breakthrough Pain Polyethylene Glycol 17 gm 11/17/19 11:00 11/17/19 11:36 Miralax PO 17 gm QAM LEXI Administration Rivaroxaban 10 mg 11/16/19 21:00 11/16/19 21:32 Xarelto PO 12/20/19 17:01 10 mg DAILY@1700 [facility] Administration Radiology Results: ITS Impressions Chest X-Ray 11/15/19 11:48 IMPRESSION: 1. Mild airspace opacities in right mid and lower lung zones, consistent with atelectasis versus pneumonia. Mild atelectasis at left lung base. Hip/Pelvis X-Ray 11/15/19 11:49 IMPRESSION: 1. . Transcervical fracture of the proximal left femur with proximal migration and external rotation. Hip X-Ray 11/16/19 15:29 IMPRESSION: Status post left total hip arthroplasty Labs Labs: Laboratory Results - last 24 hr 11/16/19 11/17/19 11/17/19 12:51 06:15 06:15 WBC RBC Hgb 13.1 L Hct 38.2 L MCV MCH MCHC RDW Plt Count MPV Immature Gran % (A
--- NOTE | 2019-11-17 13:40 | PC.NURSE ---
At 11:11, I was called into the room by physical therapist, Travis. He stated that the patient had passed out and had to be helped back to the chair. Upon entering the room, I observed the patient sitting in the chair and answering questions that Travis was asking him. Vitals were immediately taken on the patient and I called TY Vidales to notify her of what had happened.
[2019-11-17 14:15] LABS: Add Urine Microscopic? YES; Appearance Urine Clear (Clear); Bilirubin Urine Negative (Negative); Blood Urine 2+ (Negative); Color Urine Yellow (Yellow); Glucose Urine UA Negative (Negative); Hyaline Casts Urine 15-19 /lpf; Ketones Urine Trace mg/dL (Negative); Leukocyte Esterase Ur Negative LEU/UL (Negative); Mucus Urine Rare /lpf; Nitrate Urine Negative (Negative); Protein Urine 1+ mg/dL (Negative); Specific Grav Ur 1.019 (1.001-1.035); Urobilinogen Urine Negative mg/dL (<2.0); WBC Urine 0-3 /hpf
[2019-11-17] MEDS: RIVAROXABAN 10 MG TABLET PO (17:08)
[2019-11-18] VITALS (11 sets, daily range): BP systolic 80–161; BP diastolic 54–91; PULSE 81–117; RESP 16–18; TEMP 36.8–37.6; O2SAT 93–96
[2019-11-18 06:21] LABS: Hematocrit 31.1 % (42.0-52.0); Hemoglobin 10.7 g/dL (14.0-18.0); Mean Corpuscular HGB Conc 34.4 g/dl (32-36); Mean Corpuscular Hemoglobin 32.3 pg (26-34); Mean Platelet Volume 11.2 fl (7.4-10.4); Platelet Count Result 142 k/mm3 (150-375); Red Blood Count 3.31 M/mm3 (4.6-6.20); Red Cell Distribution Width 12.8 % (11.5-14.5); White Blood Count 7.7 K/mm3 (4.5-10.0)
[2019-11-18] MEDS: ACETAMINOPHEN 325 MG TABLET 650 MG PO ×2 (06:23→17:43)
[2019-11-18 06:32] LABS: Anion Gap 6 mmol/L (8-16); Blood Urea Nitrogen 22 mg/dL (9-20); Carbon Dioxide 28 mmol/L (22-30); Chloride 97 mmol/L (98-107); Estimated CRCL calculation 87 ml/min; Estimated Glomerular Filt Rate > 60; Glucose 111 mg/dL (75-110); Potassium 3.4 mmol/L (3.4-5.0); Sodium 131 mmol/L (137-145)
[2019-11-18] MEDS: DOCUSATE SODIUM 100 MG CAPSULE PO ×2 (08:08→17:39)
[2019-11-18] MEDS: LOSARTAN POTASSIUM 100 MG TABLET PO (08:08)
[2019-11-18] MEDS: CELECOXIB 200 MG CAPSULE PO (08:08)
[2019-11-18] MEDS: polyethylene glycoL 3350 17 GM POWD.PACK PO (08:08)
[2019-11-18] MEDS: SODIUM CHLORIDE 0.9% IV 1,000 ML 999 ML IV CONT (11:18)
--- NOTE | 2019-11-18 12:24 | PM.IMPN ---
Progress Note: A&P Assessment and Plan (1) Closed left hip fracture: Qualifiers: Encounter type: initial encounter Qualified Code(s): S72.002A - Fracture of unspecified part of neck of left femur, initial encounter for closed fracture Code(s): S72.002A - Fracture of unspecified part of neck of left femur, initial encounter for closed fracture Status: Acute Assessment and Plan: Patient sustained a mechanical fall on 11/15/2019. Hip x-ray showed transcervical fracture of the proximal left femur with proximal migration and external rotation. He underwent surgical repair by Dr. Torres on 11/16/2019. He tolerated the procedure well and his pain is well controlled. Weight bearing, incision care, DVT prophylaxis per Dr. Torres Analgesics as needed for pain PT and OT consult is appreciated. Patient lives at home and is independent in ADLs. He would like to return home with a walker. Will evaluate his progress with therapy. (2) Pre-syncope: Code(s): R55 - Syncope and collapse Status: Acute Assessment and Plan: Patient had an episode of lightheadedness while ambulating with PT on 11/17/2019 during which time he felt sweaty and thought that he might faint. He was moved to a chair and felt better shortly after sitting down. He was able to recall the entire event. He did not eat his breakfast that morning and had not been drinking much water. He was found to be orthostatic at that time. He received a 500 ml fluid bolus and blood pressures improved. He denies being in any significant pain at that time. Patient felt lightheaded while walking with PT again today but did not feel that he was going to faint. Suspect this is secondary to orthostasis from dehydration/volume depletion. (3) Orthostatic hypotension: Code(s): I95.1 - Orthostatic hypotension Status: Acute Assessment and Plan: Patient noted to be orthostatic at time of episode detailed above. Suspect this is secondary to volume depletion given poor PO intake, likely due to viral illness. Administer 1L IV fluid bolus and then continue gentle maintenace fluids; monitoring closely for evidence of fluid overload with COVID-19. Apply Chon hose. Monitor orthostatics each shift. (4) Hypertension: Qualifiers: Hypertension type: essential hypertension Qualified Code(s): I10 - Essential (primary) hypertension Code(s): I10 - Essential (primary) hypertension Status: Acute Assessment and Plan: Blood pressures reviewed and initially elevated this morning 150-160s but declined after ambulation and have ranged 80-113. Prior elevated readings probably secondary to pain. Continue losartan at this time as patient has had several elevated BP readings. Monitor closely for any signs of hypotension but anticipate improvement with fluid resuscitation (5) Tobacco dependence: Code(s): F17.200 - Nicotine dependence, unspecified, uncomplicated Status: Acute Assessment and Plan: Patient smokes 1 pack of cigarettes approximately every 3 days. Smoking cessation has been discussed and patient understands (6) COVID-19: Code(s): U07.1 - COVID-19 Status: Acute Assessment and Plan: Symptoms ongoing for approximately 10-12 days. Tested positive on 11/15/2019. He is feeling much better. He had a fever of 102.9 on 6 in the morning and 102.7 last night. He is maintaining adequate oxygenation on room air. Continue isolation precautions Patient is not a candidate for dexamethasone or remdesivir given duration of symptoms and lack of oxygen requirement. Acetaminophen as needed for fever. Bronchodilators and mucolytic therapy as needed. Suspect fevers are related to COVID-19 but will evaluate CXR and blood cultures given duration of symptoms. Trend acute phase reactants (7) Urinary retention: Code(s): R33.9 - Retention of urine, unspecified
[2019-11-18] MEDS: SODIUM CHLORIDE 0.9% IV 1,000 ML 75 ML IV CONT (12:49)
[2019-11-18 14:26] LABS: Lactate Dehydrogenase 541 U/L (313-618)
[2019-11-18 14:52] LABS: CRP 36.7 mg/dL (<1.0)
[2019-11-18] MEDS: RIVAROXABAN 10 MG TABLET PO (17:39)
[2019-11-19] MEDS: SODIUM CHLORIDE 0.9% IV 1,000 ML 75 ML IV CONT (02:16)
[2019-11-19 03:50] VITALS: BP 159/89; PULSE 96; RESP 18; TEMP 37; O2SAT 92
[2019-11-19 06:15] LABS: Hematocrit 26.7 % (42.0-52.0); Hemoglobin 9.3 g/dL (14.0-18.0); Mean Corpuscular HGB Conc 34.8 g/dl (32-36); Mean Corpuscular Hemoglobin 32.5 pg (26-34); Mean Corpuscular Volume 93.4 fl (80-100); Mean Platelet Volume 11.2 fl (7.4-10.4); Platelet Count Result 154 k/mm3 (150-375); Red Blood Count 2.86 M/mm3 (4.6-6.20); Red Cell Distribution Width 12.8 % (11.5-14.5); White Blood Count 6.5 K/mm3 (4.5-10.0)
[2019-11-19 06:48] LABS: Alanine Aminotransferase 59 U/L (4-50); Albumin Level 2.7 g/dL (3.5-5.1); Alkaline Phosphatase 59 U/L (38-126); Anion Gap 6 mmol/L (8-16); Aspartate Amino Transferase 89 U/L (17-59); Bilirubin,Total 0.6 mg/dL (0.2-1.3); Blood Urea Nitrogen 17 mg/dL (9-20); Calcium 7.6 mg/dL (8.4-10.2); Carbon Dioxide 27 mmol/L (22-30); Chloride 102 mmol/L (98-107); Estimated CRCL calculation 87 ml/min; Estimated Glomerular Filt Rate > 60; Glucose 98 mg/dL (75-110); Lactate Dehydrogenase 544 U/L (313-618); Potassium 3.1 mmol/L (3.4-5.0); Sodium 135 mmol/L (137-145)
[2019-11-19 08:00] VITALS: BP 138/83; BP 155/80; PULSE 102; RESP 16; TEMP 37.1; O2SAT 98
[2019-11-19] MEDS: CELECOXIB 200 MG CAPSULE PO (09:02)
[2019-11-19] MEDS: DOCUSATE SODIUM 100 MG CAPSULE PO ×2 (09:02→16:41)
[2019-11-19] MEDS: LOSARTAN POTASSIUM 100 MG TABLET PO (09:02)
[2019-11-19] MEDS: POTASSIUM CHLORIDE 20 MEQ TABLET 40 MEQ PO (09:03)
[2019-11-19] MEDS: polyethylene glycoL 3350 17 GM POWD.PACK PO (09:03)
[2019-11-19 12:00] VITALS: BP 131/80; PULSE 89; RESP 14; TEMP 36.3; O2SAT 96
--- NOTE | 2019-11-19 12:22 | PM.IMPN ---
Progress Note: A&P Assessment and Plan (1) Closed left hip fracture: Qualifiers: Encounter type: initial encounter Qualified Code(s): S72.002A - Fracture of unspecified part of neck of left femur, initial encounter for closed fracture Code(s): S72.002A - Fracture of unspecified part of neck of left femur, initial encounter for closed fracture Status: Acute Assessment and Plan: Patient sustained a mechanical fall on 11/15/2019. Hip x-ray showed transcervical fracture of the proximal left femur with proximal migration and external rotation. He underwent surgical repair by Dr. Torres on 11/16/2019. He tolerated the procedure well and his pain is well controlled. Weight bearing, incision care, DVT prophylaxis per Dr. Torres. Continue analgesics as needed for pain. PT and OT consult is appreciated. Patient lives at home and is independent in ADLs. He would like to return home with a walker. Will evaluate his progress with therapy. (2) COVID-19: Code(s): U07.1 - COVID-19 Status: Acute Assessment and Plan: Symptoms ongoing for approximately 10-12 days. Tested positive on 11/15/2019. He is feeling much better. He had a fever of 102.9 on 11/16 in the morning and 102.7 overnight 11/16. Fevers have resolved today. He is maintaining adequate oxygenation on room air. Continue isolation precautions. Continue supportive care with tylenol as needed for fever, mucolytics, and bronchodilators. Continue to monitor acute phase reactants. He is not a candidate for dexamethasone or remdesivir given duration of symptoms and lack of oxygen requirement. Repeat CXR and blood cultures were drawn due to the presence of fever. His fever has resolved. Blood cultures are pending. Repeat 2 view CXR given portable findings of possible infiltrate vs mass in right lower lung. Encourage incentive spirometry given post-op status. (3) Abnormal chest xray: Code(s): R93.89 - Abnormal findings on diagnostic imaging of other specified body structures Status: Acute Assessment and Plan: CXR demonstrated focal infiltrate or mass in the right lower lung field. PA and lateral radiographs were recommended with CT thorax considered should this persist. 2 view CXR was ordered and is pending. (4) Pre-syncope: Code(s): R55 - Syncope and collapse Status: Acute Assessment and Plan: Resolved. Patient had an episode of lightheadedness while ambulating with PT on 11/17/2019 during which time he felt sweaty and thought that he might faint. He was moved to a chair and felt better shortly after sitting down. He was able to recall the entire event. He did not eat his breakfast that morning and had not been drinking much water. He was found to be orthostatic at that time. He received fluid bolus and blood pressures improved. He denies being in any significant pain at that time. It is likely that these symptoms were secondary to orthostasis from dehydration/volume depletion. Orthostasis has resolved and he had no further lightheadedness or dizziness with activity today. (5) Orthostatic hypotension: Code(s): I95.1 - Orthostatic hypotension Status: Acute Assessment and Plan: Resolved. Patient noted to be orthostatic at time of episode detailed above. Suspect this is secondary to volume depletion given poor PO intake, likely due to viral illness. He received fluid bolus and gentle maintenance fluids. Orthostatic hypotension has resolved on repeat orthostatic vitals and he his no longer having any dizziness or lightheadedness with standing. Continue OSVALDO hose. Continue to encourage fall precautions. (6) Hypertension: Qualifiers: Hypertension type: essential hypertension Qualified Code(s): I10 - Essential (primary) hypertension Code(s): I10 - Essential (primary) hypertension Status: Acute Assessment and Plan: Blood pressures reviewed and are re
--- NOTE | 2019-11-19 14:06 | PC.NURSE ---
Pt had orthostatic BPs completed on this date... Supine 138/83 Sitting 131/80 Standing 131/80
[2019-11-19 16:00] VITALS: BP 156/83; PULSE 94; RESP 16; TEMP 36.6; O2SAT 96
--- NOTE | 2019-11-19 16:28 | PM.PNORT ---
Progress Note: A&P Additional Plan POD 3 DOING WELL. NO PROBLEMS WITH COVID DIAGNOSIS. PATIENT IS MOSTLY ASYMPTOMATIC. RECOMMEND CONTINUE PT. WILL SIGN OFF FOR NOW. HE WILL F/U IN 6 WEEKS. 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 NEG HOMANS SIGN Objective Data Vital Signs Vital Signs: Vital Signs - 24 hr 11/18/19 20:00 11/18/19 20:05 11/18/19 20:10 Temperature 37.1 C Pulse Rate 97 Respiratory Rate 18 Blood Pressure 134/69 134/68 125/69 Pulse Oximetry 94 11/18/19 23:58 11/19/19 03:50 11/19/19 08:00 Temperature 36.8 C 37.0 C 37.1 C Pulse Rate 81 96 102 H Respiratory Rate 18 18 16 Blood Pressure 156/79 H 159/89 H 138/83 Pulse Oximetry 95 92 98 11/19/19 12:00 Temperature 36.3 C L Pulse Rate 89 Respiratory Rate 14 Blood Pressure 131/80 Pulse Oximetry 96 Intake/Output Intake/Output: Intake & Output 11/16/19 11/17/19 11/18/19 11/19/19 23:59 23:59 23:59 23:59 Intake Total 1020 3080 3500 1660 Output Total 1275 1925 1775 300 Balance -255 1155 1725 1360 Meds/Results Medications: Active Medications Generic Name Dose Route Start Last Admin Trade Name Freq PRN Reason Stop Dose Admin Acetaminophen 650 mg 11/16/19 12:34 11/18/19 17:43 Tylenol Tablet PO 650 mg Q6H PRN Administration Mild Pain (1-3) or Fever Hydrocodone Bitart/Acetaminophen 1 tab 11/16/19 12:34 11/18/19 20:13 [place] 7.5-325 Mg PO 1 tab Q3H PRN Administration Pain Rated 4-6 Albuterol 2 puff 11/16/19 14:32 Proventil Hfa INHALATION QIDRT PRN Shortness Of Breath Celecoxib 200 mg 11/17/19 09:00 11/19/19 09:02 Celebrex PO 200 mg DAILY LEXI Administration Diazepam 5 mg 11/16/19 12:34 Valium Po PO Q6H PRN Anxiety/Muscle Spasm Docusate Sodium 100 mg 11/16/19 17:00 11/19/19 09:02 Colace Capsule PO 100 mg BID LEXI Administration Guaifenesin 600 mg 11/16/19 14:32 Mucinex 12 Hr Tab PO Q12HR PRN Cough Losartan Potassium 100 mg 11/16/19 09:00 11/19/19 09:02 Cozaar PO 100 mg DAILY LEXI Administration Magnesium Hydroxide 30 ml 11/16/19 12:34 Milk Of Magnesia PO BID PRN Constipation Morphine Sulfate 3 mg 11/16/19 12:34 Morphine Sulfate Inj IV PUSH Q3H PRN Pain Rated 7-10 Naloxone HCl 0.1 mg 11/16/19 12:34 Narcan IV PUSH Q2M PRN Opiate Reversal Oxycodone/Acetaminophen 1 tablet 11/16/19 12:34 Percocet 5-325 Mg PO Q4H PRN Breakthrough Pain Polyethylene Glycol 17 gm 11/17/19 11:00 11/19/19 09:03 Miralax PO 17 gm QAM LEXI Administration Rivaroxaban 10 mg 11/16/19 21:00 11/18/19 17:39 Xarelto PO 12/20/19 17:01 10 mg DAILY@1700 LEXI Administration Radiology Results: ITS Impressions Hip/Pelvis X-Ray 11/15/19 11:49 IMPRESSION: 1. . Transcervical fracture of the proximal left femur with proximal migration and external rotation. Hip X-Ray 11/16/19 15:29 IMPRESSION: Status post left total hip arthroplasty Chest X-Ray 11/19/19 14:40 IMPRESSION: 1. No definite right lower lobe nodule identified. 2. Airspace opacities of the left costophrenic angle, consistent with COVID 19 pneumonia given clinical history. Labs Labs: Laboratory Results - last 24 hr 11/19/19 11/19/19 11/19/19 05:50 05:50 05:50 WBC 6.5 RBC 2.86 L Hgb 9.3 L Hct 26.7 L MCV 93.4 MCH 32.5 MCHC 34.8 RDW 12.8 Plt Count 154 MPV 11.2 H Sodium 135 L Potassium 3.1 L Chloride 102 Carbon Dioxide 27 Anion Gap 6 L BUN 17 Creatinine 0.70 Estim Creat Clear Calc 87 Estimated GFR > 60 Glucose 98 Calcium 7.6 L Ferritin 1320.00 H Total Bilirubin 0.6 AST 89 H ALT 59 H Alkaline Phosphatase 59 Lactate Dehydrogenase 544 C-Reactive Protein 2
[2019-11-19] MEDS: RIVAROXABAN 10 MG TABLET PO (16:41)
[2019-11-19 20:00] VITALS: BP 153/104; BP 165/89; BP 174/94; PULSE 112; PULSE 114; PULSE 96; RESP 20; TEMP 37.2; O2SAT 93; O2SAT 94; O2SAT 98
[2019-11-19] MEDS: ACETAMINOPHEN 325 MG TABLET 650 MG PO (22:41)
[2019-11-20] VITALS (8 sets, daily range): BP systolic 146–159; BP diastolic 87–101; PULSE 85–101; RESP 16–20; TEMP 36.4–37.2; O2SAT 93–97
[2019-11-20 06:01] LABS: Hemoglobin 9.4 g/dL (14.0-18.0); Mean Corpuscular HGB Conc 34.8 g/dl (32-36); Mean Corpuscular Hemoglobin 32.8 pg (26-34); Mean Corpuscular Volume 94.1 fl (80-100); Platelet Count Result 212 k/mm3 (150-375); Red Blood Count 2.87 M/mm3 (4.6-6.20); Red Cell Distribution Width 12.9 % (11.5-14.5); White Blood Count 7.5 K/mm3 (4.5-10.0)
[2019-11-20 06:14] LABS: Alanine Aminotransferase 138 U/L (4-50); Albumin Level 2.8 g/dL (3.5-5.1); Alkaline Phosphatase 63 U/L (38-126); Anion Gap 5 mmol/L (8-16); Aspartate Amino Transferase 178 U/L (17-59); Bilirubin,Total 0.8 mg/dL (0.2-1.3); Blood Urea Nitrogen 17 mg/dL (9-20); Calcium 7.9 mg/dL (8.4-10.2); Carbon Dioxide 28 mmol/L (22-30); Chloride 103 mmol/L (98-107); Estimated CRCL calculation 87 ml/min; Estimated Glomerular Filt Rate > 60; Glucose 103 mg/dL (75-110); Lactate Dehydrogenase 635 U/L (313-618); Potassium 3.1 mmol/L (3.4-5.0); Sodium 136 mmol/L (137-145)
[2019-11-20 06:20] LABS: CRP 23.1 mg/dL (<1.0)
[2019-11-20] MEDS: CELECOXIB 200 MG CAPSULE PO (08:50)
[2019-11-20] MEDS: POTASSIUM CHLORIDE 20 MEQ TABLET 40 MEQ PO (08:51)
[2019-11-20] MEDS: LOSARTAN POTASSIUM 100 MG TABLET PO (08:51)
[2019-11-20] MEDS: DOCUSATE SODIUM 100 MG CAPSULE PO (08:51)
[2019-11-20] MEDS: polyethylene glycoL 3350 17 GM POWD.PACK PO (08:52)
[2019-11-20 08:53] LABS: Hepatitis B Surface Antigen Negative (Negative)
[2019-11-20 08:58] LABS: HAV RESULT Negative (Negative); Hepatitis B Core IgM Result Negative (Negative)
[2019-11-20 09:10] LABS: Hepatitis C Virus Antibody Negative (Negative)
--- NOTE | 2019-11-20 14:24 | PM.DS ---
DS: Admitting Diagnosis Admitting Diagnosis Admitting Diagnosis: Left hip pain after fall. DS: Discharge Diagnosis Discharge Diagnosis (1) Closed left hip fracture: Qualifiers: Encounter type: initial encounter Qualified Code(s): S72.002A - Fracture of unspecified part of neck of left femur, initial encounter for closed fracture Code(s): S72.002A - Fracture of unspecified part of neck of left femur, initial encounter for closed fracture Status: Acute Assessment and Plan: Discharge Summary (Date of service 11/20/19): Mr. Breen is a 68 y.o. male with PMH significant for hypertension and tobacco dependence who presented to the emergency department after sustaining a mechanical fall on 11/15/2019. Hip x-ray showed transcervical fracture of the proximal left femur with proximal migration and external rotation. He underwent surgical repair by Dr. Torres on 11/16/2019. He tolerated the procedure well and and pain was well-controlled. He tested positive for COVID-19 but was never hypoxic and treated conservatively. He was orthostatic due to volume depletion given poor PO intake with viral illness. He was given gentle IV fluids and orthostasis resolved. He thought he had a dark bowel movement but never had any further bowel movements for guaiac testing prior to discharge. He was advised to monitor closely for any evidence of hematochezia or melena. Hemoglobin and hematocrit did decrease but more likely due to surgery. LFTs were elevated and hepatitis panel negative. LFT elevation was likely related to COVID-19. He will need to follow-up outpatient for repeat CBC and CMP in 1 week to check H&H, potassium, and LFTs. He was discharged in stable condition on the afternoon of 11/20/19. (2) COVID-19: Code(s): U07.1 - COVID-19 Status: Acute Assessment and Plan: Symptoms ongoing for approximately 10-12 days. Tested positive on 11/15/2019. He was never hypoxic and was treated with supportive care. (3) Abnormal chest xray: Code(s): R93.89 - Abnormal findings on diagnostic imaging of other specified body structures Status: Acute Assessment and Plan: CXR demonstrated focal infiltrate or mass in the right lower lung field. PA and lateral radiographs were recommended with CT thorax considered should this persist. 2 view CXR was ordered with no definite right lower lobe nodule. He will need to follow-up outpatient for repeat imaging after resolution of COVID for repeat CXR/CT. (4) Pre-syncope: Code(s): R55 - Syncope and collapse Status: Acute Assessment and Plan: Resolved. Secondary to orthostasis. (5) Orthostatic hypotension: Code(s): I95.1 - Orthostatic hypotension Status: Acute Assessment and Plan: Resolved. Orthostasis was felt to be due to volume depletion given poor PO intake in the setting of viral illness/insensible losses from fever. He received IV fluid hydration and orthostasis resolved. OSVALDO hose were continued and recommended at discharge. (6) Hypertension: Qualifiers: Hypertension type: essential hypertension Qualified Code(s): I10 - Essential (primary) hypertension Code(s): I10 - Essential (primary) hypertension Status: Acute Assessment and Plan: Blood pressures were acceptably controlled. Losartan was continued. (7) Tobacco dependence: Code(s): F17.200 - Nicotine dependence, unspecified, uncomplicated Status: Acute Assessment and Plan: Patient smokes 1 pack of cigarettes approximately every 3 days. Smoking cessation was discussed and patient understands the need for immediate smoking cessation. (8) Urinary retention: Code(s): R33.9 - Retention of urine, unspecified Status: Resolved Assessment and Plan: Resolved and likely secondary to anesthesia. (9) Hypokalemia: Code(s): E87.6 - Hypokalemia Statu
--- NOTE | 2019-11-20 15:16 | PC.NURSE ---
TY Ryan, declined pt receiving flu vaccine due to covid status. Check with pt PCP on when he should receive the vax.
== END 2019-11-20 17:08 | disposition home or self-care (01) | DRG 469 ==
LOC: ANHED 12:22 → ANH3MEDSUR 14:19
PROVIDERS: Orthopaedic Surgery; Physician Assistant; Admitting Provider Internal Medicine; Emergency Provider Emergency Medicine; PCP Family Medicine; Visit Provider Physician Assistant
PROC: 0SRB02A Replacement of Left Hip Joint with Metal on Polyethylene Synthetic Substitute, Uncemented, Open Approach (ICD-10-PCS; CPT 27130; principal; 2019-11-16 08:00)
DX: S72.032A Displaced midcervical fracture of left femur, initial encounter for closed fracture (principal); U07.1 COVID-19; I10 Essential (primary) hypertension; F17.210 Nicotine dependence, cigarettes, uncomplicated; W18.39XA Other fall on same level, initial encounter; S50.312A Abrasion of left elbow, initial encounter; S80.212A Abrasion, left knee, initial encounter; R93.89 Abnormal findings on diagnostic imaging of other specified body structures; R33.0 Drug induced retention of urine; T41.45XA Adverse effect of unspecified anesthetic, initial encounter; I95.1 Orthostatic hypotension; E87.6 Hypokalemia
CPT/HCPCS: 36415; 71045; 71046; 73501; 73502; 80048; 80053; 80074; 81001; 82728; 83615; 83735; 85014; 85018; 85025; 85027; 85610; 85730; 86140; 87040; 87635; 93005; 96374; 97110; 97116; 97161; 97165; 97530; 97535; 99285; A9270; C1713; C1776; C9803; J0131; J0171; J0330; J0690; J1100; J1170; J2270; J2370; J2405; J2704; J2710; J2795; J3010; J7030; J7040; J7120; U0003

== ENCOUNTER 2020-05-28 09:40 | Outpatient (CLI) | payer OTHER, SELFPAY ==
--- NOTE | ~2020-05-28 | US_ITS ---
. EXAMINATION: US aorta [facility] DATE: 05/28/2020 10:13 INDICATION: Abdominal aortic aneurysm screening. TECHNIQUE: Grayscale, color Doppler, and pulsed Doppler images of the aorta and common iliac arteries were obtained. COMPARISON: None. FINDINGS: The aorta is normal in caliber and demonstrates atherosclerosis. The right common iliac artery is nor mal in caliber. The left common iliac artery is normal in caliber. IMPRESSION: 1. No abdominal aortic aneurysm. Reviewed, dictated and finalized at location A.
== END 2020-05-28 09:41 | disposition home or self-care (01) ==
PROVIDERS: PCP Internal Medicine; Visit Provider Internal Medicine
DX: Z87.891 Personal history of nicotine dependence (principal)
CPT/HCPCS: 76706

== ENCOUNTER 2024-02-12 14:36 | Inpatient (IN) | payer OTHER, SELFPAY ==
[2024-02-12] VITALS (12 sets, daily range): BP systolic 137–173; BP diastolic 68–88; PULSE 82–107; RESP 15–22; TEMP 36.6; O2SAT 98–100; BMI 19.1; BMI 17.7
--- NOTE | ~2024-02-12 | XR_ITS ---
EXAMINATION: XR chest 1V portable DATE: 02/16/2024 10:33 INDICATION: Right lung mass status post bronchoscopy. TECHNIQUE: A single frontal view of the chest was obtained on 2 radiographs. COMPARISON: Chest 2 views 02/12/2024, chest CT 02/13/2024 FINDINGS: There are chronic reticular opacities in the lower lung zones. There is complete opacificat ion of right lung upper lobe with volume loss. No pleural effusion or pneumothorax. The heart size is normal. IMPRESSION: 1. Stable complete opacification of right lung upper lobe with volume loss, consistent with malignanc y and atelectasis. 2. Mild chronic interstitial lung disease. Reviewed, dictated and finalized at location A. ISTICAL CONSULTANT IMPRESSION: 1. Stable complete opacification of right lung upper lobe with volume loss, con sistent with malignancy and atelectasis. 2. Mild chronic interstitial lung disease.
--- NOTE | ~2024-02-12 | XR_ITS ---
XR chest 2V Ordering provider: Jose Antonio Mahoney MD History: 73 years Male with . sob . Comparison: None. FINDINGS: MEDIASTINUM: The cardiac silhouette is not enlarged. LUNGS: Opacification the right upper lobe area suggestive of atelectasis versus pneumonia. Underlying emphysematous changes of the lungs. No effusions or pneumothorax. OTHER: No free air under the diaphragm. Degenerative changes of the spine. IMPRESSION: Right upper lobe atelectasis versus pneumonia. Follow-up to resolution is advised to exclude underlyi ng mass. Reviewed, dictated and finalized at location A. OPAEDIC GENERAL IMPRESSION: Right upper lobe atelectasis versus pneumonia. Follow-up to resolution is advis ed to exclude underlying mass.
--- NOTE | ~2024-02-12 | CT_ITS ---
EXAMINATION: CT chest abdomen w con DATE: 02/13/2024 12:25 INDICATION: Right lung mass. TECHNIQUE: Computed tomography (CT) of the chest and abdomen was performed with 75 mL Omnipaque 350 i ntravenous contrast. Automated exposure control and iterative reconstruction technique were employed. The dose-length product was 329.02 mGy-cm. COMPARISON: Chest 2 views 02/12/2024 FINDINGS: CHEST CT: There is mild emphysema. There are scattered peripheral reticular opacities in the lungs, likely manager operations joceline. There is mild bronchiectasis in the inferior lungs. There is a 7.6 x 5.6 cm mass in right lung u pper lobe with occlusion of the right upper lobe bronchus and invasion of the right mainstem bronchus . There is collapse of right lung upper lobe. No pleural effusion. The heart size is normal. There ar e coronary artery calcifications. No pericardial effusion. There is kyphosis of thoracic spine. There are bridging endplate osteophytes at multiple levels in the spine, consistent with diffuse idiopathi c skeletal hyperostosis (DISH). There are old healed right rib fractures. ABDOMEN CT: The liver demonstrates focal steatosis at the hilum. The gallbladder is normal. There is a 7 mm hypod ense mass in the peripheral spleen, likely benign. The pancreas and adrenal glands are normal. There are cysts in the kidneys measuring up to 2.4 cm on the left. There is a 4 mm stone in right kidney. T here are 2 stones in left kidney measuring up to 5 mm. There are no dilated loops of bowel. There are no pathologically enlarged lymph nodes. There is no free intraperitoneal fluid. There is a chronic c ompression fracture of L1. There is severe lower lumbar spondylosis. IMPRESSION: 1. 7.6 cm mass in right lung upper lobe with invasion of right mainstem bronchus, consistent with yessy basilio bronchogenic carcinoma. Bronchoscopy is recommended for diagnosis. 2. Mild emphysema and mild chronic interstitial lung disease. Reviewed, dictated and finalized at location A. RIGGER IMPRESSION: 1. 7.6 cm mass in right lung upper lobe with invasion of right mainstem bronchu s, consistent with primary bronchogenic carcinoma. Bronchoscopy is recommended for diagnosis. 2. Mild emphysema and mild chronic interstitial lung disease.
--- NOTE | 2024-02-12 19:50 | ECG_ITS ---
Test Date: 2024-02-12 19:56:05 Measurements Intervals [place] Rate: 92 P: 67 MI: 196 QRS: 18 QRSD: 111 T: 78 QT: 357 QTc: 443 Interpretive Statements SINUS RHYTHM WITH OCCASIONAL VENTRICULAR PREMATURE COMPLEXES MODERATE INTRAVENTRICULAR CONDUCTION DELAY [110+ ms QRS DURATION] No previous ECG available for comparison Electronically Signed On 02-13-2024 15:07:46 [employer]NING IN[employer] by Jared Rodriges M.D.
[2024-02-12 20:19] LABS: Basophils Absolute Auto 0.1 K/mm3 (0.0-0.1); Basophils Percent Auto 0.4 % (0.2-1.2); Eosinophils Absolute Auto 0.3 K/mm3 (0-0.3); Eosinophils Percent Auto 2.3 % (0-4.4); Hematocrit 31.4 % (42.0-52.0); Hemoglobin 10.1 g/dL (14.0-18.0); Immature Granulocyte Absolute 0.07 K/mm3 (0.00-0.031); Immature Granulocyte Percent A 0.5 % (0-0.5); Lymphocytes Absolute Auto 1.92 K/mm3 (0.9-3.2); Lymphocytes Percent Auto 13.7 % (18.3-44.2); Mean Corpuscular HGB Conc 32.2 g/dl (32-36); Mean Corpuscular Hemoglobin 30.6 pg (26-34); Mean Corpuscular Volume 95.2 fl (80-100); Mean Platelet Volume 9.9 fl (7.4-10.4); Monocytes Absolute Auto 0.7 K/mm3 (0.1-0.6); Monocytes Percent Auto 4.6 % (2.6-8.5); Neutrophils Percent Auto 78.5 % (45.5-73.1); Platelet Count Result 301 k/mm3 (150-375); Red Cell Distribution Width 14.5 % (11.5-14.5)
[2024-02-12 20:22] LABS: Add Urine Microscopic? NO; Appearance Urine Clear (Clear); Bilirubin Urine Negative (Negative); Blood Urine Negative (Negative); Color Urine Yellow (Yellow); Glucose Urine UA Negative (Negative); Ketones Urine Negative (Negative); Leukocyte Esterase Ur Negative LEU/UL (Negative); Nitrate Urine Negative (Negative); Protein Urine Negative (Negative)
[2024-02-12 20:32] LABS: Lactic Acid Reflex 1.6 mmol/L (0.7-2.0)
[2024-02-12 20:33] LABS: Alanine Aminotransferase 21 U/L (6-50); Albumin Level 3.4 g/dL (3.5-5.1); Alkaline Phosphatase 87 U/L (38-126); Anion Gap 2 mmol/L (4-12); Aspartate Amino Transferase 25 U/L (17-59); Bilirubin,Total 0.7 mg/dL (0.2-1.3); Blood Urea Nitrogen 11 mg/dL (9-20); Calcium 9.9 mg/dL (8.4-10.2); Carbon Dioxide 35 mmol/L (22-30); Chloride 102 mmol/L (98-107); Estimated CRCL calculation 49 ml/min; Estimated Glomerular Filt Rate > 60; Glucose 144 mg/dL (65-110); Potassium 3.1 mmol/L (3.4-5.0); Sodium 139 mmol/L (137-145)
[2024-02-12 20:34] LABS: Lipase 29 U/L (23-300); Magnesium 2.2 mg/dL (1.6-2.3)
[2024-02-12 20:45] LABS: NT Pro B Type Natriuretic Pept 1050 pg/mL (19.9-100); Troponin I < 0.012 ng/mL (0.000-0.034)
[2024-02-12 21:18] LABS: Procalcitonin 0.2 ng/mL
--- NOTE | 2024-02-12 21:24 | ED.GENADULT ---
HPI - General Adult General Chief complaint: Shortness of Breath/Dyspnea Stated complaint: cloud in my head for 50 days Time Seen by Provider: 02/12/24 19:31 History of Present Illness HPI narrative: patient is a 73-year-old gentleman presents emergency department with chief complaint of shortness of breath with exertion. Patient reports that he does smoke cigarettes reports over the last 50 days he has been having increasing shortness of breath with exertion the patient reports that he has been treated with amoxicillin without improvement reports that he continues to lose weight and reports that he has had a rash over his entire body for some period of time as well Related Data Allergies Allergy/AdvReac Type Severity Reaction Status Date / Time No Known Allergies Allergy Verified 02/12/24 14:37 Review of Systems Review of Systems: A 10 system review of systems was completed on the patient and is negative except for what is stated in the HPI. Nursing and ancillary documentation was reviewed. [facility] Past Medical History Medical History Abnormal chest xray Closed hip fracture Closed left hip fracture COVID-19 COVID-19 virus RNA detected (11/15/19) Femoral neck fracture Hypertension Overweight (BMI 25.0-29.9) Tobacco dependence Surgical History Surgical History History of left hip replacement 2020 Family History Family History Other No significant family history Social History Social History Social History: Surrogate decision maker: Jr. Breen, son. Code status: Full code. Smoking packs per day: 0.1 Smoking cigarettes per day: 2.0 Years smoked: 50 Smoking pack-years: 5.00 Smoking status: Current some day smoker Second hand tobacco smoke exposure: No Alcohol intake: current Drinks per week: 3 Alcohol use details: social Substance use: never Substance use type: does not use Lack of Transportation: No Lack of Food: Never True Current Housing: I Have Housing Concerned About Future Housing: No Difficulty Paying Gas/Electric Bills: No Difficulty Paying for Meds: No Currently Unemployed: No Difficulty w/ Childcare or Family Care: No Living arrangements: alone Additional living arrangements comments: Lives in his own home in [place]. Additional occupation/education comments: Retired. Gender identity (if verbalized by the patient): Male Sexual Orientation (if Verbalized by the Patient): Straight or Heterosexual Spiritual care concerns: No Agree to blood products: No Exam Narrative: GENERAL: Well-appearing, well-nourished, and in no acute distress. HEAD: Normocephalic, atraumatic. EYES: PERRLA and EOMI. ENT: Nares clear, no rhinorrhea or epistaxis. Mucous membranes moist. NECK: Supple. CHEST: Clear to auscultation. No respiratory distress. HEART: Regular rate and rhythm. No murmur heard. Normal peripheral pulses. ABDOMEN: Soft, nontender, nondistended, normal active bowel sounds. EXTREMITIES: Normal range of motion. No edema. SKIN: Warm, dry, diffuse rash over the trunk that has been excoriated. NEURO: No focal deficits. Alert and oriented x3. PSYCH: Normal mood and affect. Course Vital Signs Vital signs: Vital Signs Temperature 36.6 C 02/12/24 14:40 Pulse Rate 107 H 02/12/24 14:40 Respiratory Rate 20 02/12/24 14:40 Blood Pressure 173/88 H 02/12/24 14:40 Pulse Oximetry 99 02/12/24 14:40 Oxygen Delivery Room Air 02/12/24 14:40 Temperature 36.6 C 02/12/24 14:40 Pulse Rate 107 H 02/12/24 14:40 Respiratory Rate 20 02/12/24 14:40 Blood Pressure 173/88 H 02/12/24 14:40 Pulse Oximetry 99 02/12/24 14:40 Oxygen Delivery Room Air 02/12/24 20:08 Medical Decision Making [facility] Narrative Medical decision making narrative: differential diagnosis includes pneumonia, CHF, upper respiratory infection chest x-ray showed a right upper lobe infiltrate. White blood cell count was elevated at 14 troponin was negative BNP was slightly elevated at 1050. patient was given Rocephin and Zithromax blood cultures were obtained. The case was discussed with the hospitalist the Patient will be admitted for further care Vital Signs Vital Signs: Vital Signs Temperature 36.6 C 02/12/24 14:40 Pulse Rate 107 H 02/12/24 14:40 Respiratory Rate 20 02/12/24 14:40 Blood Pressure 173/88 H 02/12/24 14:40 Pulse Oximetry 99 02/12/24 14:40 Oxygen Delivery Room Air 02/12/24 14:40 Temperature 36.6 C 02/12/24 14:40 Pulse Rate 107 H 02/12/24 14:40 Respiratory Rate 20 02/12/24 14:40 Blood Pressure 173/88 H 02/12/24 14:40 Pulse Oximetry 99 02/12/24 14:40 Oxygen Delivery Room Air 02/12/24 20:08 Lab Data 02/12/24 20:04 02/12/24 20:04 Labs: Lab Results 02/12/24 Range/Units 20:04 WBC 14.0 H (4.5-10.0) K/mm3 RBC 3.30 L (4.6-6.20) M/mm3 Hgb 10.1 L (14.0-18.0) g/dL Hct 31.4 L (42.0-52.0) % MCV 95.2 (80-100) fl MCH 30.6 (26-34) pg MCHC 32.2 (32-36) g/dl RDW 14.5 (11.5-14.5) % Plt Count 301 (150-375) k/mm3 MPV 9.9 (7.4-10.4) fl Immature Gran % (Auto) 0.5 (0-0.5) % Neut % (Auto) 78.5 H (45.5-73.1) % Lymph % (Auto) 13.7 L (18.3-44.2) % [place] % (Auto) 4.6 (2.6-8.5) % Eos % (Auto) 2.3 (0-4.4) % Baso % (Auto) 0.4 (0.2-1.2) % Lymph # (Auto) 1.92 (0.9-3.2) K/mm3 [place] # (Auto) 0.7 H (0.1-0.6) K/mm3 Eos # (Auto) 0.3 (0-0.3) K/mm3 Baso # (Auto) 0.1 (0.0-0.1) K/mm3 Abs Immat Gran (auto) 0.07 H (0.00-0.031) K/mm3 Absolute Neuts (auto) 11.0 H (1.3-6.7) K/mm3 Absolute Nucleated RBC 0.000 (0.0-0.012) K/mm3 Nucleated RBC % 0.0 (0.0-0.2) % Sodium 139 (137-145) mmol/L Potassium 3.1 L (3.4-5.0) mmol/L Chloride 102 (98-107) mmol/L Carbon Dioxide 35 H (22-30) mmol/L Anion Gap 2 L (4-12) mmol/L BUN 11 D (9-20) mg/dL Creatinine 0.90 (0.7-1.3) mg/dL Estim Creat Clear Calc 49 ml/min Estimated GFR > 60 (59 - ) Glucose 144 H (65-110) mg/dL Lactic Acid 1.6 (0.7-2.0) mmol/L Calcium 9.9 (8.4-10.2) mg/dL Magnesium 2.2 (1.6-2.3) mg/dL Total Bilirubin 0.7 (0.2-1.3) mg/dL AST 25 (17-59) U/L ALT 21 (6-50) U/L Alkaline Phosphatase 87 (38-126) U/L Troponin I < 0.012 (0.000-0.034) ng/mL NT-Pro-B Natriuret Pep 1050 H (19.9-100) pg/mL Total Protein 7.0 (6.3-8.2) g/dL Albumin 3.4 L (3.5-5.1) g/dL Lipase 29 (23-300) U/L Procalcitonin 0.2 ng/mL Urine Color Yellow (Yellow) Urine Appearance Clear (Clear) Urine pH 7.0 (5.0-9.0) Ur Specific [place] 1.010 (1.001-1.035) Urine Protein Negative (Negative) mg/dL Urine Glucose (UA) Negative (Negative) mg/dL Urine Ketones Negative (Negative) mg/dL Ur Blood (Man) Negative (Negative) Urine Nitrate Negative (Negative) Urine Bilirubin Negative (Negative) Urine Urobilinogen 1.0 (<2.0) mg/dL Leukocyte Esterase Rfl Negative (Negative) RODNEY/UL Influenza A (RT-PCR) Pending Influenza B (RT-PCR) Pending RSV (RT-PCR) Pending SARS-CoV-2 RNA (RT-PCR) Pending Discharge Plan Discharge Clinical Impression: Right upper lobe pneumonia Patient Disposition: Still a Patient Condition: Stable Prescriptions: No Action mecobalamin (vitamin B12) 1,000 mcg tablet,disintegrating 1,000 mcg sublingual DAILY Qty: 1 0RF Rx Instructions: place tablet under tongue and allow to dissolve for at least30 secs before swallowing baclofen 10 mg tablet 10 mg PO QHS Qty: 90 0RF losartan 100 mg tablet 100 mg PO DAILY Qty: 90 3RF Follow-up/Referrals: Rafy Bueno MD [Primary Care Provider] - Time of Disposition: 21:30
[2024-02-12 21:31] LABS: Influenza A QL RT-PCR Negative (Negative); Influenza B QL RT-PCR Negative (Negative); RSV RNA, RT-PCR Negative (Negative); SARS-CoV-2 RNA PCR Negative (Negative)
[2024-02-12] MEDS: AZITHROMYCIN 500 MG/NS 250 ML 500 MG/250 ML BAG 250 MG IVPB (21:45)
--- NOTE | 2024-02-12 21:45 | PC.NURSE ---
blood cultures drawn in right forearm without kurin device - not available per lab blood cultures x 2 drawn right ac without kurin device - not available per lab both sets drawn after using chg wipes and prep pad.
--- NOTE | 2024-02-12 23:04 | ADMGEN ---
This patient, Jeet Breen, was admitted to 3 [facility] Surg Room 319-01. Patient/family oriented to hospital policies and general routines including ID bracelet, bed and alarms, visiting hours, pain management, procedures, bathroom and other care routines, personal items, smoking policy, room service/diet, and visiting hours. Information on how to activate the Rapid Response Team has been discussed. Patient/Family are encouraged to report perceived risks to care and to ask questions if they do not understand what they are told or what they should do.
--- NOTE | 2024-02-12 23:17 | PC.NURSE ---
Admission report to [facility]EN[facility] Chamorro.
[2024-02-13] VITALS (8 sets, daily range): BP systolic 121–142; BP diastolic 70–77; PULSE 75–88; RESP 16–20; TEMP 36.8–37.6; O2SAT 92–100; BMI 17.7
--- NOTE | 2024-02-13 | ECHO_ITS ---
Patient Info Name: Jeet Breen Age: 73 years : 1950 Gender: Male Ht: 68 in Wt: 117 lbs BSA: 1.58 m2 HR: 88 bpm BP: 137 / 69 mmHg Heart Rhythm: Sinus Rhythm Technical Quality: Fair Exam Date: 02/13/2024 1:58 PM Exam Location: Echo Lab Patient Status: Inpatient Admit Date: 02/12/2024 Staff Ordering Physician: Jason Alvarado MD Tankage Grinder Operator: Ashwini Dee RDCS Attending Provider: Jason Alvarado MD Exam Type: CA echo doppler color flow Study Info Indications R06.00 - Dyspnea, unspecified Complete two-dimensional, color flow and Doppler transthoracic echocardiogram is performed. Summary 1. Complete two-dimensional, color flow and Doppler transthoracic echocardiogram is performed. 2. Limited views including no subcostal views. 3. Left ventricular chamber dimension is normal. 4. Left ventricular systolic function is normal, estimated at 60-65%. 5. The left ventricular diastolic function is indeterminate as it was not assessed. 6. There is moderate aortic valve sclerosis. 7. No pulmonary hypertension, estimated pulmonary arterial systolic pressure is 12 mmHg. Left Ventricle The left ventricular diastolic function is indeterminate as it was not assessed. Limited views including no subcostal views. Left ventricular chamber dimension is normal. Left ventricular systolic function is normal, estimated at 60-65%. Right Ventricle Right ventricular chamber dimension is normal. Right ventricular systolic function is normal. Left Atria Left atrial chamber dimension is normal. Right Atria Right atrial chamber dimension is normal. Aortic Valve The aortic valve is trileaflet. There is moderate aortic valve sclerosis. There is no aortic valve stenosis. There is no aortic valve regurgitation. Pulmonic Valve There is no pulmonic regurgitation. Mitral Valve There is no mitral valve stenosis. There is no mitral valve regurgitation. Tricuspid Valve There is no tricuspid valve regurgitation. No pulmonary hypertension, estimated pulmonary arterial systolic pressure is 12 mmHg. Pericardium/Pleural There is no pericardial effusion. Inferior Vena Cava Inferior vena cava is not well visualized. Aorta The aortic root size at the sinus of Valsalva is normal. Left Ventricular Outflow Tract Name Value Normal LVOT 2D LVOT Diameter 2.5 cm Pulmonic Valve Name Value Normal PV Doppler PV Peak Gradient 5 mmHg PV Regurgitation Doppler ME Peak End Diastolic Velocity 3 cm/s Tricuspid Valve Name Value Normal TV Regurgitation Doppler TR Peak Velocity 132 cm/s TR Peak Gradient 7 mmHg Estimated PAP/RSVP RA Pressure 5 mmHg <=5 PA Systolic Pressure 12 mmHg <36 RV Systolic Pressure 12 mmHg <36 Aorta Name Value Normal Ascending Aorta Ao Root Diameter (MM) 3.7 cm Ao Root Diam Index (MM) 2.3 cm/m2 Aortic Valve Name Value Normal AV Regurgitation 2D LVOT Area 4.9 cm2 Ventricles Name Value Normal LV Dimensions 2D/MM IVS Diastolic Thickness (2D) 0.7 cm 0.6-1.0 LVID Diastole (2D) 4.7 cm 4.2-5.8 LVIW Diastolic Thickness (2D) 0.7 cm 0.6-1.0 LVID Systole (2D) 3.2 cm 2.5-4.0 LVOT Diameter 2.5 cm LV Mass (2D Cubed) 104.20 g 88.00-224.00 LV Mass Index (2D Cubed) 66 g/m2 49-115 Relative Wall Thickness (2D) 0.30 LV Fractional Shortening/Ejection Fraction 2D/MM LV Fractional Shortening (2D) 25 % 25-43 LV EF (2D Teicholz) 50 % 52-72 Report Signatures
--- NOTE | 2024-02-13 05:00 | P.HP_ITS ---
H&P: HPI History of Present Illness Date/Time: 02/13/24 05:00 Chief Complaint: 1. Shortness of breath Narrative: Jeet Breen is a 73 yo M with a MHx significant for HTN He presents after an outpatient evaluation for dyspnea found him to have developed pneumonia and despite a hinduism adherence to the Amoxicillin regimen, his symptoms persist. He attests to experiencing a productive cough w/o hemoptysis, malaise, fatiuge, poor execution of his ADLs with subjective weight loss and anorexia. He denies leg swellings, PND, Orthopnea, palpitations, nausea, vomiting or diarrhea. He does not smoke/chew tobacco, drink alcohol or consume recreational/illicit drugs. Work-up findings. CXR: Right upper lobe atelectasis versus pneumonia. Follow-up to resolution is advised to exclude underlying mass. WBC 14 Hb 10 PLT 301 Na 139 K 3.1 HCO3 35 AG 2 BUN 11 Cr 0.90 GFR 49 BNP 1050 Troponin <0.012 UA: Unremarkable Jeet Breen will be admitted, evaluated and managed for a RUL Pneumonia/probable mass Review of Systems Constitutional: Constitutional: Reports fatigue ENT: Reports system reviewed and no additional complaints, except as documented Cardiovascular: Cardiovascular: Reports no additional cardiovascular complaints, Denies chest pain, Denies leg edema, Denies lightheadedness and Denies palpitations Respiratory: Respiratory: Reports cough and Reports dyspnea Gastrointestinal: Gastrointestinal: Denies abdominal pain, Denies bloating, Denies heartburn and Denies diarrhea Musculoskeletal: Musculoskeletal: Reports no additional musculoskeletal complaints Integumentary/Breasts: Skin/Breast: Reports system reviewed and no additional complaints, except as docu and Reports dry skin Neurologic: Denies abnormal gait, Reports confusion and Denies vertigo Psychiatric: Psychiatric: Reports anxiety, Denies behavioral changes and Denies confusion [facility] Past Medical History Medical History Abnormal chest xray Closed hip fracture Closed left hip fracture COVID-19 COVID-19 virus RNA detected (11/15/19) Femoral neck fracture Hypertension Overweight (BMI 25.0-29.9) Tobacco dependence Surgical History Surgical History History of left hip replacement 2020 Family History Family History Other No significant family history Social History Social History Social History: Surrogate decision maker: Jr. Breen, son. Code status: Full code. Smoking packs per day: 0.1 Smoking cigarettes per day: 2.0 Years smoked: 50 Smoking pack-years: 5.00 Smoking status: Current some day smoker Second hand tobacco smoke exposure: No Alcohol intake: former Alcohol use details: social Substance use: never Substance use type: does not use Do You Feel Safe in your Home?: Yes Lack of Transportation: No Lack of Food: Never True Current Housing: I Have Housing Concerned About Future Housing: No Difficulty Paying Gas/Electric Bills: No Difficulty Paying for Meds: No Currently Unemployed: No Education: High School Diploma/GED Difficulty w/ Childcare or Family Care: No Living arrangements: alone Additional living arrangements comments: Lives in his own home in [place]. Additional occupation/education comments: Retired. Gender identity (if verbalized by the patient): Male Sexual Orientation (if Verbalized by the Patient): Straight or Heterosexual Spiritual care concerns: No Agree to blood products: No Meds Home Medications and Allergies Home Medications Medication Instructions Recorded Confirmed Type mecobalamin (vitamin B12) 1,000 1,000 mcg sublingual DAILY #1 01/04/21 02/12/24 Rx mcg disintegrating tablet tablet,sublingual losartan 100 mg tablet 100 mg PO DAILY #90 tabs 12/28/23 02/12/24 Rx Allergies Allergy/AdvReac Type Severity Reaction Status Date / Time No Known Allergies Allergy Verified 02/12/24 14:37 Vital Signs Vital Signs - 24 hr 02/12/24 14:40 02/12/24 20:08 02/12/24 21:55 Temperature 97.9 F Pulse Rate 107 H 96 Respiratory Rate 20 17 Blood Pressure 173/88 H Pulse Oximetry 99 98 Oxygen Delivery Room Air Room Air 02/12/24 21:56 02/12/24 22:00 02/12/24 22:01 Temperature Pulse Rate 92 85 82 Respiratory Rate 22 H 18 21 H Blood Pressure 161/68 H 144/75 H Pulse Oximetry 99 100 100 Oxygen Delivery 02/12/24 22:15 02/12/24 22:16 02/12/24 22:44 Temperature Pulse Rate 84 83 84 Respiratory Rate 18 20 15 Blood Pressure 143/73 H 137/69 Pulse Oximetry 100 100 100 Oxygen Delivery 02/12/24 22:17 02/12/24 22:30 02/12/24 22:31 Temperature Pulse Rate 82 85 84 Respiratory Rate 21 H 18 15 Blood Pressure 137/69 Pulse Oximetry 100 100 100 Oxygen Delivery 02/12/24 23:22 Temperature Pulse Rate 84 Respiratory Rate 15 Blood Pressure Pulse Oximetry 100 Oxygen Delivery Room Air Exam Const: General: comfortable and no acute distress HENMT: Face/Nose/Sinus: Normal nares present Mouth: Yes moist mucous membranes Eyes: General: appearance normal, both eyes and all related structures Sclera: sclerae normal Pupils: Equal, round and reactive pupils present EOM: EOMs intact bilaterally Neck: Neck: supple Thyroid: thyroid normal Resp: Auscultation: no rhonchi, no wheezes and diminished lung sounds bilateral GI: GI Palp: Yes Soft to palpation Auscultation: normal bowel sounds Skin: General skin exam: normal color Neuro: General: gait normal Motor exam (neuro): 5/5 motor strength present throughout, Normal motor muscle tone present throughout and Abnormal motor strength present Extrem: General: normal to inspection and normal exam except as noted Psych: Mental Status: mental status grossly normal Affect: normal affect H&P: Results Labs Labs: Short CBC 02/12/24 Range/Units 20:04 WBC 14.0 H (4.5-10.0) K/mm3 Hgb 10.1 L (14.0-18.0) g/dL Hct 31.4 L (42.0-52.0) % Plt Count 301 (150-375) k/mm3 [facility] 02/12/24 20:04 Sodium 139 Potassium 3.1 L Chloride 102 Carbon Dioxide 35 H BUN 11 D Creatinine 0.90 Glucose 144 H Calcium 9.9 Cardiac Enzymes 02/12/24 Range/Units 20:04 Troponin I < 0.012 (0.000-0.034) ng/mL Liver Function 02/12/24 Range/Units 20:04 Total Bilirubin 0.7 (0.2-1.3) mg/dL AST 25 (17-59) U/L ALT 21 (6-50) U/L Alkaline Phosphatase 87 (38-126) U/L Albumin 3.4 L (3.5-5.1) g/dL Urine 02/12/24 Range/Units 20:04 Urine Color Yellow (Yellow) Urine Appearance Clear (Clear) Urine pH 7.0 (5.0-9.0) Ur Specific [place] 1.010 (1.001-1.035) Urine Protein Negative (Negative) mg/dL Urine Glucose (UA) Negative (Negative) mg/dL Assessment and Plan Assessment and plan (1) Right upper lobe pneumonia: Code(s): J18.9 - Pneumonia, unspecified organism Status: Acute (2) Acute bacterial sinusitis: Code(s): J01.90 - Acute sinusitis, unspecified; B96.89 - Other specified bacterial agents as the cause of diseases classified elsewhere Status: Acute Plan Acute and principal conditions 1. RUL Pneumonia; probable mass 2. Dyspnea on exertion 3. Hypokalemia CT chest, ECHO Supplemental oxygen; IS Incentive spirometry; Ceftriaxone, Azithromycin Replete and monitor K Chronic and stable conditions 1. Hypertension. On Losartan Code status. Full Nutrition. Regular VTE prophylaxis. on SCDs; [facility] Quality VTE Prophylaxis VTE prophylaxis: mechanical ordered and pharmacologic ordered Hospitalist MIPS Advance Care Plan I have confirmed that the patient's Advanced Care Plan is present, code status is documented, or surrogate decision maker is listed in patient medical record.: Yes Medication Reconciliation I have utilized all available resources to obtain, update and review the patients current medications (includes all prescriptions, OTC, herbals, cannabis, and nutritional supplements).: Yes
[2024-02-13] MEDS: POTASSIUM CHLORIDE 20 MEQ PACKET (FOR LIQUID) 40 MEQ PO ×2 (06:05→08:10)
[2024-02-13] MEDS: IPRATROPIUM 0.5 MG/ALBUTEROL SULFATE 2.5 MG AMPUL.NEB 3 ML INHALATION ×2 (09:15→13:44)
--- NOTE | 2024-02-13 16:19 | P.PNIM_ITS ---
Progress Note: A&P Assessment and Plan (1) Right upper lobe pneumonia: Code(s): J18.9 - Pneumonia, unspecified organism Status: Acute Assessment and Plan: - CXR suspicious for possible RUL PNA, but appears to be malignancy per CT abd/pelvis. - Waste Oil Pumper consulted for possible bronch. - Continue broad IV abx for now. - Currently good O2 sats on RA. - Further mgt per fur dressing supervisor. (2) Acute bacterial sinusitis: Code(s): J01.90 - Acute sinusitis, unspecified; B96.89 - Other specified bacterial agents as the cause of diseases classified elsewhere Status: Acute Assessment and Plan: - Covered by current abx. - Currently good O2 sats > 90 % on RA. - Supportive care. (3) Hypertension: Qualifiers: Hypertension type: essential hypertension Qualified Code(s): I10 - Essential (primary) hypertension Code(s): I10 - Essential (primary) hypertension Status: Acute Assessment and Plan: - Currently well controlled. - Monitor for now. (4) Hypokalemia: Code(s): E87.6 - Hypokalemia Status: Acute Assessment and Plan: - Replaced. - Monitor levels. Plan Code status. Full Nutrition. Regular VTE prophylaxis. on SCDs; [facility] Time Spent With Patient Time with patient: 15 - 25 minutes Subjective Date/time seen: 02/13/24 16:19 Patient on bedrest and states he was having cough spells earlier but it's improved now. Interval history: Patient calm on bedrest and looks to be in no acute distress. Review of Systems Review of Systems: All systems reviewed & are unremarkable except as noted in HPI and below Exam Narrative: General: Fair appearing elderly male, in no acute distress. HEENT: Atraumatic, PERRL, EOM, anicteric, moist mucosa. NECK: Supple. Lungs: Diminished to RUL. Heart: RRR, no murmurs. Abdomen: Soft, non-tender, non-distended, +ve bowel sounds X4 quadrants. Extremities: Acyanotic, no edema. Neuro: Fairly well oriented, CN II-XII grossly intact. Psych: Calm and co-operative. Objective Data Vital Signs Vital Signs: Vital Signs - 24 hr 02/12/24 20:08 02/12/24 21:55 02/12/24 21:56 Temperature Pulse Rate 96 92 Respiratory Rate 17 22 H Blood Pressure 161/68 H Pulse Oximetry 98 99 Oxygen Delivery Room Air 02/12/24 22:00 02/12/24 22:01 02/12/24 22:15 Temperature Pulse Rate 85 82 84 Respiratory Rate 18 21 H 18 Blood Pressure 144/75 H Pulse Oximetry 100 100 100 Oxygen Delivery 02/12/24 22:16 02/12/24 22:44 02/12/24 22:17 Temperature Pulse Rate 83 84 82 Respiratory Rate 20 15 21 H Blood Pressure 143/73 H 137/69 Pulse Oximetry 100 100 100 Oxygen Delivery 02/12/24 22:30 02/12/24 22:31 02/12/24 23:22 Temperature Pulse Rate 85 84 84 Respiratory Rate 18 15 15 Blood Pressure 137/69 Pulse Oximetry 100 100 100 Oxygen Delivery Room Air 02/13/24 06:00 02/13/24 08:00 02/13/24 09:15 Temperature 98.2 F Pulse Rate 77 Respiratory Rate 16 Blood Pressure Pulse Oximetry 99 99 92 Oxygen Delivery Room Air Room Air 02/13/24 09:15 02/13/24 09:25 02/13/24 13:44 Temperature Pulse Rate 77 75 79 Respiratory Rate 20 20 18 Blood Pressure Pulse Oximetry Oxygen Delivery 02/13/24 13:52 02/13/24 13:56 Temperature 99.3 F Pulse Rate 80 88 Respiratory Rate 18 18 Blood Pressure 142/77 H Pulse Oximetry 100 Oxygen Delivery Intake/Output Intake/Output: Intake & Output 02/10/24 02/11/24 02/12/24 02/13/24 23:59 23:59 23:59 23:59 Intake Total 50 1254 Balance 50 1254 Meds/Results Medications: Active Medications Generic Name Dose Route Start Last Admin Trade Name Freq PRN Reason Stop Dose Admin Acetaminophen 650 mg 02/12/24 21:30 Acetaminophen 325 Mg Tablet PO Q4H PRN Mild Pain (1-3) or Fever Albuterol/Ipratropium 3 ml 02/13/24 02:00 02/13/24 13:44 Ipratropium 0.5 Mg/Albuterol Sulfate 2.5 Mg Ampul.Neb 3 Ml INHALATION 3 ml Q6HRT LEXI Administration Ceftriaxone Sodium 1 gm in 50 mls @ 100 mls/hr 02/13/24 21:00 Rocephin 1 Gm/Ns 50 Ml IVPB Q24H LEXI Azithromycin 500 mg in 250 mls @ 250 mls/hr 02/13/24 21:00 Zithromax IVPB Q24H LEXI Perflutren Lipid Microsphere 0 ml 02/13/24 05:07 Perflutren Lipid Microspheres 1.5 Ml Vial Diluted To 10 Ml Total Volume IV PUSH 02/16/24 05:07 ONCE PRN adequate visualization Protocol Radiology Results: ITS Impressions Chest X-Ray 02/12/24 20:22 IMPRESSION: Right upper lobe atelectasis versus pneumonia. Follow-up to resolution is advised to exclude underlying mass. Chest/Abdomen CT 02/13/24 12:33 IMPRESSION: 1. 7.6 cm mass in right lung upper lobe with invasion of right mainstem bronchus, consistent with primary bronchogenic carcinoma. Bronchoscopy is recommended for diagnosis. 2. Mild emphysema and mild chronic interstitial lung disease. Labs Labs: Laboratory Results - last 24 hr 02/12/24 20:04 WBC 14.0 H RBC 3.30 L Hgb 10.1 L Hct 31.4 L MCV 95.2 MCH 30.6 MCHC 32.2 RDW 14.5 Plt Count 301 MPV 9.9 Immature Gran % (Auto) 0.5 Neut % (Auto) 78.5 H Lymph % (Auto) 13.7 L [place] % (Auto) 4.6 Eos % (Auto) 2.3 Baso % (Auto) 0.4 Lymph # (Auto) 1.92 [place] # (Auto) 0.7 H Eos # (Auto) 0.3 Baso # (Auto) 0.1 Abs Immat Gran (auto) 0.07 H Absolute Neuts (auto) 11.0 H Absolute Nucleated RBC 0.000 Nucleated RBC % 0.0 Sodium 139 Potassium 3.1 L Chloride 102 Carbon Dioxide 35 H Anion Gap 2 L BUN 11 D Creatinine 0.90 Estim Creat Clear Calc 49 Estimated GFR > 60 Glucose 144 H Lactic Acid 1.6 Calcium 9.9 Magnesium 2.2 Total Bilirubin 0.7 AST 25 ALT 21 Alkaline Phosphatase 87 Troponin I < 0.012 NT-Pro-B Natriuret Pep 1050 H Total Protein 7.0 Albumin 3.4 L Lipase 29 Procalcitonin 0.2 Urine Color Yellow Urine Appearance Clear Urine pH 7.0 Ur Specific [place] 1.010 Urine Protein Negative Urine Glucose (UA) Negative Urine Ketones Negative Ur Blood (Man) Negative Urine Nitrate Negative Urine Bilirubin Negative Urine Urobilinogen 1.0 Leukocyte Esterase Rfl Negative Influenza A (RT-PCR) Negative Influenza B (RT-PCR) Negative RSV (RT-PCR) Negative SARS-CoV-2 RNA (RT-PCR) Negative Hospitalist MIPS Advance Care Plan I have confirmed that the patient's Advanced Care Plan is present, code status is documented, or surrogate decision maker is listed in patient medical record.: Yes Medication Reconciliation I have utilized all available resources to obtain, update and review the patients current medications (includes all prescriptions, OTC, herbals, cannabis, and nutritional supplements).: Yes
--- NOTE | 2024-02-13 16:33 | P.CONPL_ITS ---
Assessment and Plan Assessment and plan (1) Lung mass: Code(s): R91.8 - Other nonspecific abnormal finding of lung field Status: Acute Assessment and Plan: His chest CT 02/13/2024 shows 7 cm RUL mass obstructing right lung upper lobe with occlusion of the right upper lobe bronchus and invasion of the right holly nstem bronchus. this is likely cancer. He has had significant weight loss over the last 6 months or more. He has had shortness of breath, dizziness, cough with clear sputum. I discussed bronchoscopy with him. This is tentatively going to be on . I answered his questions. The reason for doing a bronchoscopy is to get tissue to make the diagnosis. This allows the oncologist to treat him correctly. Lung cancer is more treatable now than at any time in the past. Treatment can reduce pain and shortness of breath. He is going to think about it, says that he will likely go ahead and have the bronchoscopy. He will receive antibiotics for community acquired pneumonia, COPD, and will have a walk study to evaluate for need for O2 before discharge. He will need a PET scan after discharge. PET scans cannot be performed on in-patients. (2) Emphysema of lung: Code(s): J43.9 - Emphysema, unspecified Status: Acute Assessment and Plan: Chest CT 02/13/2024 indicates mild emphysema and mild chronic interstitial lung disease. I will add inhalers to treat obstructive lung disease and optimize his breathing prior to bronchoscopy. He has been short of breath at home, more short of breath lately. Plan plan: bronchoscopy likely Treat with empiric antibiotics, azithromycin and ceftriaxone, for community- acquired pneumonia/postobstructive pneumonia right upper lobe Stop albuterol/ipratropium nebulized Start Trelegy 100, one puff daily Start albuterol nebulized Q 4 hours prn shortness of breath History of Present Illness History of Present Illness Consult date: 02/13/24 Requesting physician: Bhavesh Peñaloza NP Chief complaint: Right upper lobe pneumonia Narrative: patient was seen Feb 13, 2024 at 18:00 Room 319 NEW: Jeet Breen is a 73-year-old man admitted with shortness of breath, and chest CT today showed a mass in the RUL 7.6 x 5.6 cm, occluding right upper lobe. This is concerning for pneumonia. He says that a week and a half ago he developed some coughing with clear sputum production, increased shortness of br eath, dizziness, and he reports a 35-40 lb weight loss over the last 6-7 weeks. He had an office visit 12/28/2023, his weight was 56 kg and now February 12 his weight is 53 kg so a 3 kg drop over 6-7 weeks, 6.6 lb. In summer September 06, 2023, he weighed 64 kg. 11 kg more than now. He does not have a diagnosis of COPD. He has not required inhalers. He has never had pneumonia. His chart indicates a history of long COVID, he had a positive COVID test November 15, 2019. He becomes short of breath walking from his house to his car, going grocery shopping and returning home. He does not have chest pain or hemoptysis. He does have arthritis and he has had a closed left hip fracture. [place] [address], he has 78% neutrophils. His BNP is 1050. Procalcitonin is 0.2, normal range, not consistent with bacterial pneumonia. His potassium is 3.1, this is being replaced. BUN 11, creatinine 0.9. Na+ 139, calcium 9.9, albumin 3.4, lactic acid 1.6. He lives alone, smoked until this admission, 3-4 cigarettes a day. He has smoked since his teens, at most 3/4 pack per day at most, stopped for a year, re- started for no clear reason. For the last few years, he has smoked 3-4 cigarettes per day. 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 He has not had exposure to asbestos, silica, fumes, vapors, or other occupational hazards. No enlistment. No family history of lung cancer. PMH: hypertension, hyperlipidemia, closed left hip fracture. DATA * 02/13/2024; chest CT; There is mild emphysema. There are scattered peripheral reticular opacities in the lungs, likely chronic. There is mild bronchiectasis in the inferior lungs. There is a 7.6 x 5.6 cm mass in right lung upper lobe with occlusion of the right upper lobe bronchus and invasion of the right mainstem bronchus. There is collapse of right lung upper lobe. No pleural effusion. The heart size is normal. There are coronary artery calcifications. No pericardial effusion. There is kyphosis of thoracic spine. There are bridging endplate osteophytes at multiple levels in the spine, consistent with diffuse idiopathic skeletal hyperostosis (DISH). There are old healed right rib f ractures. ABDOMEN CT: The liver demonstrates focal steatosis at the hilum. The gallbladder is normal. There is a 7 mm hypodense mass in the peripheral spleen, likely benign. The pancreas and adrenal glands are normal. There are cysts in the kidneys measuring up to 2.4 cm on the left. There is a 4 mm stone in right kidney. There are 2 stones in left kidney measuring up to 5 mm. There are no dilated loops of bowel. There are no pathologically enlarged lymph nodes. There is no free intraperitoneal fluid. There is a chronic compression fracture of L1. There is severe lower lumbar spondylosis. IMPRESSION: 1. 7.6 cm mass in right lung upper lobe with invasion of right mainstem bronchus, consistent with primary bronchogenic carcinoma. Bronchoscopy is recommended for diagnosis. 2. Mild emphysema and mild chronic interstitial lung disease. Review of Systems Review of Systems: He does not have difficulty swallowing. He has 1 meal per day. He wears glasses. He does not have difficulty rising from a sitting position in a chair. Denies leg swelling. All systems reviewed & are unremarkable except as noted in HPI and below PMFSH Past Medical History Medical History Abnormal chest xray Closed hip fracture Closed left hip fracture COVID-19 COVID-19 virus RNA detected (11/15/19) Femoral neck fracture Hypertension Overweight (BMI 25.0-29.9) Tobacco dependence Surgical History Surgical History History of left hip replacement 2020 Family History Family History Other No significant family history Social History Social History Social History: Surrogate decision maker: Jr. Breen, son. Code status: Full code. Smoking packs per day: 0.1 Smoking cigarettes per day: 2.0 Years smoked: 50 Smoking pack-years: 5.00 Smoking status: Current some day smoker Second hand tobacco smoke exposure: No Alcohol intake: former Alcohol use details: social Substance use: never Substance use type: does not use Do You Feel Safe in your Home?: Yes Lack of Transportation: No Lack of Food: Never True Current Housing: I Have Housing Concerned About Future Housing: No Difficulty Paying Gas/Electric Bills: No Difficulty Paying for Meds: No Currently Unemployed: No Education: High School Diploma/GED Difficulty w/ Childcare or Family Care: No Living arrangements: alone Additional living arrangements comments: Lives in his own home in [place]. Additional occupation/education comments: Retired. Gender identity (if verbalized by the patient): Male Sexual Orientation (if Verbalized by the Patient): Straight or Heterosexual Spiritual care concerns: No Agree to blood products: No Meds Home Medications and Allergies Home Medications Medication Instructions Recorded Confirmed Type mecobalamin (vitamin B12) 1,000 1,000 mcg sublingual DAILY #1 01/04/21 02/12/24 Rx mcg disintegrating tablet tablet,sublingual losartan 100 mg tablet 100 mg PO DAILY #90 tabs 12/28/23 02/12/24 Rx Allergies Allergy/AdvReac Type Severity Reaction Status Date / Time No Known Allergies Allergy Verified 02/12/24 14:37 Vital Signs Vital Signs - 24 hr 02/12/24 20:08 02/12/24 21:55 02/12/24 21:56 Temperature Pulse Rate 96 92 Respiratory Rate 17 22 H Blood Pressure 161/68 H Pulse Oximetry 98 99 Oxygen Delivery Room Air 02/12/24 22:00 02/12/24 22:01 02/12/24 22:15 Temperature Pulse Rate 85 82 84 Respiratory Rate 18 21 H 18 Blood Pressure 144/75 H Pulse Oximetry 100 100 100 Oxygen Delivery 02/12/24 22:16 02/12/24 22:44 02/12/24 22:17 Temperature Pulse Rate 83 84 82 Respiratory Rate 20 15 21 H Blood Pressure 143/73 H 137/69 Pulse Oximetry 100 100 100 Oxygen Delivery 02/12/24 22:30 02/12/24 22:31 02/12/24 23:22 Temperature Pulse Rate 85 84 84 Respiratory Rate 18 15 15 Blood Pressure 137/69 Pulse Oximetry 100 100 100 Oxygen Delivery Room Air 02/13/24 06:00 02/13/24 08:00 02/13/24 09:15 Temperature 36.8 C Pulse Rate 77 Respiratory Rate 16 Blood Pressure Pulse Oximetry 99 99 92 Oxygen Delivery Room Air Room Air 02/13/24 09:15 02/13/24 09:25 02/13/24 13:44 Temperature Pulse Rate 77 75 79 Respiratory Rate 20 20 18 Blood Pressure Pulse Oximetry Oxygen Delivery 02/13/24 13:52 02/13/24 13:56 Temperature 37.4 C Pulse Rate 80 88 Respiratory Rate 18 18 Blood Pressure 142/77 H Pulse Oximetry 100 Oxygen Delivery Exam Narrative: GEN: Alert, oriented, not in distress. Thin. BMI is 17.8. Decreased hearing. HEENT: pupils are equal, EOMI, symmetrical face; oral membranes moist, no upper teeth; Mallampati III airway NECK: Trachea is midline without lymphadenopathy CHEST: Equal air entry, symmetric excursion, decreased breath sounds, absent breath sounds right upper lobe anteriorly, no dullness to percussion. No wh eezing. CV: Regular S1S2 no m/g/r ABD : (+) bowel sounds Extremities : no clubbing, cyanosis, or edema. no calf tenderness. Scattered scratches lower arms. PSYCH: normal thought and speech, gait is not tested. Results Laboratory Findings 02/12/24 20:04 02/12/24 20:04 Abnormal lab findings: Abnormal Labs 02/12/24 20:04 WBC 14.0 H RBC 3.30 L Hgb 10.1 L Hct 31.4 L Neut % (Auto) 78.5 H Lymph % (Auto) 13.7 L [place] # (Auto) 0.7 H Abs Immat Gran (auto) 0.07 H Absolute Neuts (auto) 11.0 H Potassium 3.1 L Carbon Dioxide 35 H Anion Gap 2 L Glucose 144 H NT-Pro-B Natriuret Pep 1050 H Albumin 3.4 L
[2024-02-13] MEDS: AZITHROMYCIN 500 MG/NS 250 ML 500 MG/250 ML BAG 250 MG IVPB (21:47)
[2024-02-14] VITALS (7 sets, daily range): BP systolic 126–135; BP diastolic 61–78; PULSE 78–90; RESP 17–20; TEMP 37–37.2; O2SAT 90–99
[2024-02-14 07:00] LABS: Basophils Absolute Auto 0.1 K/mm3 (0.0-0.1); Basophils Percent Auto 0.5 % (0.2-1.2); Eosinophils Absolute Auto 0.7 K/mm3 (0-0.3); Eosinophils Percent Auto 4.1 % (0-4.4); Hematocrit 30.1 % (42.0-52.0); Hemoglobin 9.5 g/dL (14.0-18.0); Immature Granulocyte Absolute 0.08 K/mm3 (0.00-0.031); Immature Granulocyte Percent A 0.5 % (0-0.5); Lymphocytes Absolute Auto 1.92 K/mm3 (0.9-3.2); Lymphocytes Percent Auto 11.3 % (18.3-44.2); Mean Corpuscular HGB Conc 31.6 g/dl (32-36); Mean Corpuscular Hemoglobin 30.4 pg (26-34); Mean Corpuscular Volume 96.2 fl (80-100); Neutrophils Absolute Auto 13.2 K/mm3 (1.3-6.7); Neutrophils Percent Auto 77.6 % (45.5-73.1); Platelet Count Result 284 k/mm3 (150-375); Red Blood Count 3.13 M/mm3 (4.6-6.20); Red Cell Distribution Width 14.6 % (11.5-14.5)
[2024-02-14 07:13] LABS: Anion Gap 3 mmol/L (4-12); Blood Urea Nitrogen 13 mg/dL (9-20); Calcium 9.7 mg/dL (8.4-10.2); Carbon Dioxide 31 mmol/L (22-30); Chloride 102 mmol/L (98-107); Estimated CRCL calculation 42 ml/min; Estimated Glomerular Filt Rate > 60; Glucose 99 mg/dL (65-110); Potassium 3.9 mmol/L (3.4-5.0); Sodium 136 mmol/L (137-145)
[2024-02-14] MEDS: FLUTICASONE/UMECLIDIN/VILANTER 100-62.5-25 MCG ELLIPTA 1 PUFF INHALATION (08:18)
--- NOTE | 2024-02-14 13:58 | PM.IMPN ---
Progress Note: A&P Assessment and Plan (1) Right upper lobe pneumonia: Code(s): J18.9 - Pneumonia, unspecified organism Status: Acute Assessment and Plan: - CXR: Right upper lobe atelectasis versus pneumonia. Follow-up to resolution is advised to exclude underlying mass. - Chest/Abdomen CT 02/13/24 12:33 IMPRESSION: 1. 7.6 cm mass in right lung upper lobe with invasion of right mainstem bronchus, consistent with primary bronchogenic carcinoma. Bronchoscopy is recommended for diagnosis. 2. Mild emphysema and mild chronic interstitial lung disease. - Ruby Software Developer consulted and possible diagnostic bronchoscopy tomorrow. - Continue broad IV abx for now for possible PNA but consider discontinuation in AM with normal Procal. - Currently good O2 sats on RA. - Further mgt per house coordinator, pending bronchoscopy tomorrow. (2) Acute bacterial sinusitis: Code(s): J01.90 - Acute sinusitis, unspecified; B96.89 - Other specified bacterial agents as the cause of diseases classified elsewhere Status: Acute Assessment and Plan: - Covered by current abx. - Currently good O2 sats > 90 % on RA. - Supportive care. (3) Hypertension: Qualifiers: Hypertension type: essential hypertension Qualified Code(s): I10 - Essential (primary) hypertension Code(s): I10 - Essential (primary) hypertension Status: Acute Assessment and Plan: - Currently well controlled. - Monitor for now. (4) Hypokalemia: Code(s): E87.6 - Hypokalemia Status: Acute Assessment and Plan: - Replaced. - Monitor levels. (5) Leukocytosis: Code(s): D72.829 - Elevated white blood cell count, unspecified Status: Acute Assessment and Plan: - Unclear etiology; infectious vs possible reactive vs other. - Procal wnl. - Consider monitoring trend off abx with normal Procal. Plan Code status. Full Nutrition. Regular VTE prophylaxis. on SCDs; LEXI Time Spent With Patient Time with patient: 15 - 25 minutes Subjective Date/time seen: 02/14/24 13:58 Patient with brother bedside. Patient initially stating that he's not interested in the bronchoscopy with biopsy as he swore to himself that when he reaches a certain age, he doesn't want his body to be cut anymore. After brother discussed with patient and explained to patient biopsy has nothing to do with treatment and it's mainly for diagnosis, brother giving pt an example of a skin biopsy he had recently, pt agreed to the procedure. Interval history: Patient on bedrest after having lunch and states he feels alright and has no distressful symptoms. Review of Systems Review of Systems: All systems reviewed & are unremarkable except as noted in HPI and below Exam Narrative: General: Fair appearing elderly male, in no acute distress. HEENT: Atraumatic, PERRL, EOM, anicteric, moist mucosa. NECK: Supple. Lungs: Diminished to RUL. Heart: RRR, no murmurs. Abdomen: Soft, non-tender, non-distended, +ve bowel sounds X4 quadrants. Extremities: Acyanotic, no edema. Neuro: Fairly well oriented, CN II-XII grossly intact. Psych: Calm and co-operative. Objective Data Vital Signs Vital Signs: Vital Signs - 24 hr 02/13/24 21:22 02/14/24 06:00 02/14/24 08:20 Temperature 99.6 F 98.9 F Pulse Rate 86 82 Respiratory Rate 18 18 Blood Pressure 121/70 127/69 Pulse Oximetry 98 99 98 Oxygen Delivery Room Air 02/14/24 09:19 Temperature Pulse Rate Respiratory Rate Blood Pressure Pulse Oximetry Oxygen Delivery Room Air Intake/Output Intake/Output: Intake & Output 02/11/24 02/12/24 02/13/24 02/14/24 23:59 23:59 23:59 23:59 Intake Total 50 2210 418 Balance 50 2210 418 Meds/Results Medications: Active Medications Generic Name Dose Route Start Last Admin Trade Name Freq PRN Reason Stop Dose Admin Acetaminophen 650 mg 02/12/24 21:30 Acetaminophen 325 Mg Tablet PO Q4H PRN Mild Pain (1-3) or Fever Albuterol 2.5 mg 02/13/24 19:05 Albuterol Sulfate Neb 2.5 Mg/3 Ml Inh INHALATION Q4HRT PRN Shortness Of Breath Fluticasone/Umeclidinium/Vilanterol 1 puff 02/14/24 08:00 02/14/24 08:18 Fluticasone/Umeclidin/Vilanter 100-62.5-25 Mcg Ellipta INHALATION 1 puff DAILYRT LEXI Administration Guaifenesin/Dextromethorphan 10 ml 02/13/24 16:35 Guaifenesin/Dextromethorphan 10 Ml Udc PO Q4H PRN Cough Ceftriaxone Sodium 1 gm in 50 mls @ 100 mls/hr 02/13/24 21:00 02/13/24 21:02 Rocephin 1 Gm/Ns 50 Ml IVPB 100 mls/hr Q24H LEXI Administration Azithromycin 500 mg in 250 mls @ 250 mls/hr 02/13/24 21:00 02/13/24 21:47 Zithromax IVPB 250 mls/hr Q24H LEXI Administration Perflutren Lipid Microsphere 0 ml 02/13/24 05:07 Perflutren Lipid Microspheres 1.5 Ml Vial Diluted To 10 Ml Total Volume IV PUSH 02/16/24 05:07 ONCE PRN adequate visualization Protocol Radiology Results: ITS Impressions Chest X-Ray 02/12/24 20:22 IMPRESSION: Right upper lobe atelectasis versus pneumonia. Follow-up to resolution is advised to exclude underlying mass. Chest/Abdomen CT 02/13/24 12:33 IMPRESSION: 1. 7.6 cm mass in right lung upper lobe with invasion of right mainstem bronchus, consistent with primary bronchogenic carcinoma. Bronchoscopy is recommended for diagnosis. 2. Mild emphysema and mild chronic interstitial lung disease. Labs Labs: Laboratory Results - last 24 hr 02/14/24 06:42 WBC 17.0 H RBC 3.13 L Hgb 9.5 L Hct 30.1 L MCV 96.2 MCH 30.4 MCHC 31.6 L RDW 14.6 H Plt Count 284 MPV 10.0 Immature Gran % (Auto) 0.5 Neut % (Auto) 77.6 H Lymph % (Auto) 11.3 L [place] % (Auto) 6.0 Eos % (Auto) 4.1 Baso % (Auto) 0.5 Lymph # (Auto) 1.92 [place] # (Auto) 1.0 H Eos # (Auto) 0.7 H Baso # (Auto) 0.1 Abs Immat Gran (auto) 0.08 H Absolute Neuts (auto) 13.2 H Absolute Nucleated RBC 0.000 Nucleated RBC % 0.0 Sodium 136 L Potassium 3.9 Chloride 102 Carbon Dioxide 31 H Anion Gap 3 L BUN 13 Creatinine 1.00 Estim Creat Clear Calc 42 Estimated GFR > 60 Glucose 99 Calcium 9.7 Quality VTE Prophylaxis VTE prophylaxis: mechanical ordered Hospitalist MIPS Advance Care Plan I have confirmed that the patient's Advanced Care Plan is present, code status is documented, or surrogate decision maker is listed in patient medical record.: Yes Medication Reconciliation I have utilized all available resources to obtain, update and review the patients current medications (includes all prescriptions, OTC, herbals, cannabis, and nutritional supplements).: Yes
--- NOTE | 2024-02-14 14:36 | PM.PNPUL ---
Progress Note: A&P Assessment and Plan (1) Lung mass: Code(s): R91.8 - Other nonspecific abnormal finding of lung field Status: Acute Assessment and Plan: His chest CT 02/13/2024 shows 7 cm RUL mass obstructing the right lung upper lobe with occlusion of the right upper lobe bronchus and invasion of the right mainstem bronchus, likely lung cancer. He has had significant weight loss over the last 6 months or more. He has had shortness of breath, dizziness, cough with clear sputum. He is planning to have the bronchoscopy, and this is scheduled for Monday 10:00 a.m. The reason for doing a bronchoscopy is to get tissue to make the diagnosis. This allows the oncologist to treat him correctly. Lung cancer is more treatable now than at any time in the past. Treatment can reduce pain and shortness of breath. He will continue antibiotics for community acquired pneumonia, COPD, and will have a walk study to evaluate for need for O2 before discharge. He will need a PET scan after discharge. PET scans cannot be performed on in-patients. (2) Emphysema of lung: Code(s): J43.9 - Emphysema, unspecified Status: Acute Assessment and Plan: Chest CT 02/13/2024 indicates mild emphysema and mild chronic interstitial lung disease. he will continue Trelegy and I will change albuterol to scheduled for a few doses. He has been short of breath at home, more short of breath lately. Plan plan: bronchoscopy on MondayFeb 15 Treat with empiric antibiotics, azithromycin and ceftriaxone, for community-acquired pneumonia/postobstructive pneumonia right upper lobe. Continue Trelegy 100, one puff daily. Continue albuterol nebulized Q 6 hours scheduled for 2 doses, then continue p.r.n. for shortness of breath. Subjective Date/time seen: 02/14/24 14:36 Interval history: 02/14/24; He is on room air, ait well today, had 10 minutes of coughing earlier, no sputum production. He started Trelegy this morning. He has not asked for any albuterol. Excoriated lesions over the left upper, over the lower legs and the arms. He thinks he might have passed inside of his house, not fleas because he has not seen any but he wonders if mice could be biting him. He says that shingles was not the diagnosis, distribution is wrong. 02/13/24; new consult; Jeet Breen is a 73-year-old man admitted with shortness of breath, and chest CT today showed a mass in the RUL 7.6 x 5.6 cm, occluding right upper lobe. This is concerning for pneumonia. He says that a week and a half ago he developed some coughing with clear sputum production, increased shortness of breath, dizziness, and he reports a 35-40 lb weight loss over the last 6-7 weeks. He had an office visit 12/28/2023, his weight was 56 kg and now February 12 his weight is 53 kg so a 3 kg drop over 6-7 weeks, 6.6 lb. In summer September 06, 2023, he weighed 64 kg. 11 kg more than now. He does not have a diagnosis of COPD. He has not required inhalers. He has never had pneumonia. His chart indicates a history of long COVID, he had a positive COVID test November 15, 2019. He becomes short of breath walking from his house to his car, going grocery shopping and returning home. He does not have chest pain or hemoptysis. He does have arthritis and he has had a closed left hip fracture. [place] [address], he has 78% neutrophils. His BNP is 1050. Procalcitonin is 0.2, normal range, not consistent with bacterial pneumonia. His potassium is 3.1, this is being replaced. BUN 11, creatinine 0.9. Na+ 139, calcium 9.9, albumin 3.4, lactic acid 1.6. He lives alone, smoked until this admission, 3-4 cigarettes a day. He has smoked since his teens, at most 3/4 pack per day at most, stopped for a year, re-started for no clear reason. For the last few years, he has smoked 3-4 cigarettes per day. He lives alone, retired from packing and shipping switches for [employer]. He has not had exposure to asbestos, silica, fumes, vapors, or other occupational hazards. No enlistment. No family history of lung cancer. PMH: hypertension, hyperlipidemia, closed left hip fracture. DATA * 02/13/2024; chest CT; There is mild emphysema. There are scattered peripheral reticular opacities in the lungs, likely chronic. There is mild bronchiectasis in the inferior lungs. There is a 7.6 x 5.6 cm mass in right lung upper lobe with occlusion of the right upper lobe bronchus and invasion of the right mainstem bronchus. There is collapse of right lung upper lobe. No pleural effusion. The heart size is normal. There are coronary artery calcifications. No pericardial effusion. There is kyphosis of thoracic spine. There are bridging endplate osteophytes at multiple levels in the spine, consistent with diffuse idiopathic skeletal hyperostosis (DISH). There are old healed right rib fractures. ABDOMEN CT: The liver demonstrates focal steatosis at the hilum. The gallbladder is normal. There is a 7 mm hypodense mass in the peripheral spleen, likely benign. The pancreas and adrenal glands are normal. There are cysts in the kidneys measuring up to 2.4 cm on the left. There is a 4 mm stone in right kidney. There are 2 stones in left kidney measuring up to 5 mm. There are no dilated loops of bowel. There are no pathologically enlarged lymph nodes. There is no free intraperitoneal fluid. There is a chronic compression fracture of L1. There is severe lower lumbar spondylosis. IMPRESSION: 1. 7.6 cm mass in right lung upper lobe with invasion of right mainstem bronchus, consistent with primary bronchogenic carcinoma. Bronchoscopy is recommended for diagnosis. 2. Mild emphysema and mild chronic interstitial lung disease. Review of Systems Review of Systems: All systems reviewed & are unremarkable except as noted in HPI and below Exam Narrative: GEN: Alert, oriented, not in distress. Thin. He is on room air, saturation is 98%. HEENT: pupils are equal, EOMI, symmetrical face; oral membranes moist, no upper teeth; Mallampati III airway NECK: Trachea is midline without lymphadenopathy CHEST: Equal air entry, symmetric excursion, decreased breath sounds, absent breath sounds right upper lobe anteriorly, no dullness to percussion. No wheezing. CV: Regular S1S2 no m/g/r ABD : (+) bowel sounds Extremities : no clubbing, cyanosis, or edema. No calf tenderness. Scattered scratches lower arms, legs, left upper back. PSYCH: normal thought and speech, gait is not tested. Objective Data Vital Signs Vital Signs: Vital Signs - 24 hr 02/13/24 21:22 02/14/24 06:00 02/14/24 08:20 Temperature 37.6 C 37.2 C Pulse Rate 86 82 Respiratory Rate 18 18 Blood Pressure 121/70 127/69 Pulse Oximetry 98 99 98 Oxygen Delivery Room Air 02/14/24 09:19 Temperature Pulse Rate Respiratory Rate Blood Pressure Pulse Oximetry Oxygen Delivery Room Air Intake/Output Intake/Output: Intake & Output 02/11/24 02/12/24 02/13/24 02/14/24 23:59 23:59 23:59 23:59 Intake Total 50 2210 418 Balance 50 2210 418 Meds/Results Medications: Active Medications Generic Name Dose Route Start Last Admin Trade Name Freq PRN Reason Stop Dose Admin Acetaminophen 650 mg 02/12/24 21:30 Acetaminophen 325 Mg Tablet PO Q4H PRN Mild Pain (1-3) or Fever Albuterol 2.5 mg 02/13/24 19:05 Albuterol Sulfate Neb 2.5 Mg/3 Ml Inh INHALATION Q4HRT PRN Shortness Of Breath Fluticasone/Umeclidinium/Vilanterol 1 puff 02/14/24 08:00 02/14/24 08:18 Fluticasone/Umeclidin/Vilanter 100-62.5-25 Mcg Ellipta INHALATION 1 puff DAILYRT LEXI Administration Guaifenesin/Dextromethorphan 10 ml 02/13/24 16:35 Guaifenesin/Dextromethorphan 10 Ml Udc PO Q4H PRN Cough Ceftriaxone Sodium 1 gm in 50 mls @ 100 mls/hr 02/13/24 21:00 02/13/24 21:02 Rocephin 1 Gm/Ns 50 Ml IVPB 100 mls/hr Q24H LEXI Administration Azithromycin 500 mg in 250 mls @ 250 mls/hr 02/13/24 21:00 02/13/24 21:47 Zithromax IVPB 250 mls/hr Q24H LEXI Administration Perflutren Lipid Microsphere 0 ml 02/13/24 05:07 Perflutren Lipid Microspheres 1.5 Ml Vial Diluted To 10 Ml Total Volume IV PUSH 02/16/24 05:07 ONCE PRN adequate visualization Protocol Radiology Results: ITS Impressions Chest X-Ray 02/12/24 20:22 IMPRESSION: Right upper lobe atelectasis versus pneumonia. Follow-up to resolution is advised to exclude underlying mass. Chest/Abdomen CT 02/13/24 12:33 IMPRESSION: 1. 7.6 cm mass in right lung upper lobe with invasion of right mainstem bronchus, consistent with primary bronchogenic carcinoma. Bronchoscopy is recommended for diagnosis. 2. Mild emphysema and mild chronic interstitial lung disease. Labs Labs: Laboratory Results - last 24 hr 02/14/24 06:42 WBC 17.0 H RBC 3.13 L Hgb 9.5 L Hct 30.1 L MCV 96.2 MCH 30.4 MCHC 31.6 L RDW 14.6 H Plt Count 284 MPV 10.0 Immature Gran % (Auto) 0.5 Neut % (Auto) 77.6 H Lymph % (Auto) 11.3 L [place] % (Auto) 6.0 Eos % (Auto) 4.1 Baso % (Auto) 0.5 Lymph # (Auto) 1.92 [place] # (Auto) 1.0 H Eos # (Auto) 0.7 H Baso # (Auto) 0.1 Abs Immat Gran (auto) 0.08 H Absolute Neuts (auto) 13.2 H Absolute Nucleated RBC 0.000 Nucleated RBC % 0.0 Sodium 136 L Potassium 3.9 Chloride 102 Carbon Dioxide 31 H Anion Gap 3 L BUN 13 Creatinine 1.00 Estim Creat Clear Calc 42 Estimated GFR > 60 Glucose 99 Calcium 9.7
[2024-02-14] MEDS: ALBUTEROL SULFATE NEB 2.5 MG/3 ML INH NEBULIZE (21:32)
[2024-02-14] MEDS: AZITHROMYCIN 500 MG/NS 250 ML 500 MG/250 ML BAG 250 MG IVPB (21:59)
[2024-02-15] VITALS (13 sets, daily range): BP systolic 92–145; BP diastolic 65–68; PULSE 78–91; RESP 16–18; TEMP 36.9–37.2; O2SAT 96–100
[2024-02-15] MEDS: ALBUTEROL SULFATE NEB 2.5 MG/3 ML INH NEBULIZE ×4 (02:03→19:58)
[2024-02-15 07:35] LABS: Basophils Absolute Auto 0.1 K/mm3 (0.0-0.1); Basophils Percent Auto 0.5 % (0.2-1.2); Eosinophils Absolute Auto 0.6 K/mm3 (0-0.3); Eosinophils Percent Auto 3.7 % (0-4.4); Hematocrit 31.3 % (42.0-52.0); Hemoglobin 9.7 g/dL (14.0-18.0); Immature Granulocyte Absolute 0.11 K/mm3 (0.00-0.031); Immature Granulocyte Percent A 0.7 % (0-0.5); Lymphocytes Absolute Auto 1.83 K/mm3 (0.9-3.2); Lymphocytes Percent Auto 12.2 % (18.3-44.2); Mean Corpuscular Hemoglobin 29.8 pg (26-34); Mean Corpuscular Volume 96.3 fl (80-100); Mean Platelet Volume 10.1 fl (7.4-10.4); Monocytes Absolute Auto 0.8 K/mm3 (0.1-0.6); Monocytes Percent Auto 5.1 % (2.6-8.5); Neutrophils Absolute Auto 11.7 K/mm3 (1.3-6.7); Neutrophils Percent Auto 77.8 % (45.5-73.1); Platelet Count Result 297 k/mm3 (150-375); Red Blood Count 3.25 M/mm3 (4.6-6.20); Red Cell Distribution Width 14.5 % (11.5-14.5)
--- NOTE | 2024-02-15 07:50 | PM.IMPN ---
Progress Note: A&P Assessment and Plan (1) Right upper lobe pneumonia: Code(s): J18.9 - Pneumonia, unspecified organism Status: Acute Assessment and Plan: - CXR: Right upper lobe atelectasis versus pneumonia. Follow-up to resolution is advised to exclude underlying mass. - Chest/Abdomen CT 02/13/24 12:33 IMPRESSION: 1. 7.6 cm mass in right lung upper lobe with invasion of right mainstem bronchus, consistent with primary bronchogenic carcinoma. Bronchoscopy is recommended for diagnosis. 2. Mild emphysema and mild chronic interstitial lung disease. Plan per pulmonology for bronchoscopy on MondayFeb 15 Treat with empiric antibiotics, azithromycin and ceftriaxone, for community-acquired pneumonia/postobstructive pneumonia right upper lobe. Continue Trelegy 100, one puff daily. Continue albuterol nebulized Q 6 hours scheduled for 2 NPO at midnight Respiratory panel negative (2) Leukocytosis: Code(s): D72.829 - Elevated white blood cell count, unspecified Status: Acute Assessment and Plan: - Unclear etiology; infectious vs possible reactive vs other. - Procal wnl. -antibiotics per pulmonology. Blood cultures with no growth today (3) Acute bacterial sinusitis: Code(s): J01.90 - Acute sinusitis, unspecified; B96.89 - Other specified bacterial agents as the cause of diseases classified elsewhere Status: Acute Assessment and Plan: - Covered by current abx. - Currently good O2 sats > 90 % on RA. - Supportive care. (4) Hypertension: Qualifiers: Hypertension type: essential hypertension Qualified Code(s): I10 - Essential (primary) hypertension Code(s): I10 - Essential (primary) hypertension Status: Acute Assessment and Plan: Hypotensive this morning will hold hypertensive medications IV fluids while NPO (5) Hypokalemia: Code(s): E87.6 - Hypokalemia Status: Acute Assessment and Plan: - Replaced. - Monitor levels. (6) Malnutrition: Code(s): E46 - Unspecified protein-calorie malnutrition Status: Acute Assessment and Plan: Protein Calorie Malnutrition: - Patient reporting unintentional weight-loss within the last 6 months. - Possibly related to lung malignancy. - [place] [employer] Professor consulted. - Started on nutritional supplements. - Regular diet for now. Plan Code status. Full Nutrition. Regular VTE prophylaxis. on SCDs; [facility] Time Spent With Patient Time with patient: Greater than 35 minutes Subjective Date/time seen: 02/15/24 07:50 Interval history: He presents after an outpatient evaluation for dyspnea found him to have developed pneumonia and despite a lutheran adherence to the Amoxicillin regimen, his symptoms persist. PMH: hypertension, hyperlipidemia, closed left hip fracture. Plan per pulmonology for bronchoscopy on MondayFeb 15 Treat with empiric antibiotics, azithromycin and ceftriaxone, for community-acquired pneumonia/postobstructive pneumonia right upper lobe. Continue Trelegy 100, one puff daily. Continue albuterol nebulized Q 6 hours scheduled for 2 doses, then continue p.r.n. Patient states that he is ready to go home. Review of Systems Review of Systems: All systems reviewed & are unremarkable except as noted in HPI and below Constitutional: Constitutional: Reports fatigue ENT: Reports system reviewed and no additional complaints, except as documented and Denies vertigo Cardiovascular: Cardiovascular: Reports no additional cardiovascular complaints, Denies chest pain, Denies leg edema, Denies lightheadedness, Denies palpitations and Reports dyspnea Respiratory: Respiratory: Reports cough and Reports dyspnea Gastrointestinal: Gastrointestinal: Denies abdominal pain, Denies bloating, Denies heartburn and Denies diarrhea Musculoskeletal: Musculoskeletal: Reports no additional musculoskeletal complaints and Denies abnormal gait Integumentary/Breasts: Skin/Breast: Reports system reviewed and no additional complaints, except as docu and Reports dry skin Neurologic: Denies abnormal gait, Denies behavioral changes, Denies confusion and Denies vertigo Psychiatric: Psychiatric: Reports anxiety, Denies behavioral changes and Denies confusion Endocrine: Endocrine: Reports fatigue and Denies palpitations Exam Narrative: General: Fair appearing elderly male, in no acute distress. Frail looking HEENT: Atraumatic, PERRL, EOM, anicteric, moist mucosa. NECK: Supple. Lungs: Diminished to RUL. Heart: RRR, no murmurs. Abdomen: Soft, non-tender, non-distended, +ve bowel sounds X4 quadrants. Extremities: Acyanotic, no edema. Neuro: Fairly well oriented, CN II-XII grossly intact. Psych: Calm and co-operative. Const: General: comfortable and no acute distress; No confusion Orientation/consciousness: No confusion HENMT: Face/Nose/Sinus: Normal nares present Mouth: Yes moist mucous membranes Eyes: General: appearance normal, both eyes and all related structures Sclera: sclerae normal Pupils: Equal, round and reactive pupils present EOM: EOMs intact bilaterally Neck: Neck: supple Thyroid: thyroid normal Resp: Auscultation: no rhonchi, no wheezes and diminished lung sounds bilateral GI: Auscultation: normal bowel sounds Skin: General skin exam: normal color Neuro: General: gait normal and No confusion Cranial nerves: Yes Equal, round and reactive pupils present Motor exam (neuro): 5/5 motor strength present throughout, Normal motor muscle tone present throughout and Abnormal motor strength present Extrem: General: normal to inspection and normal exam except as noted Psych: Mental Status: mental status grossly normal Affect: normal affect Objective Data Vital Signs Vital Signs: Vital Signs - 24 hr 02/14/24 08:20 02/14/24 09:19 02/14/24 14:00 Temperature 98.8 F Pulse Rate 78 Respiratory Rate 18 Blood Pressure 126/61 Pulse Oximetry 98 99 Oxygen Delivery Room Air Room Air 02/14/24 21:32 02/14/24 21:35 02/14/24 21:40 Temperature Pulse Rate 83 90 Respiratory Rate 17 17 Blood Pressure Pulse Oximetry 90 Oxygen Delivery Room Air 02/14/24 21:51 02/14/24 20:00 02/15/24 02:04 Temperature 98.6 F Pulse Rate 85 83 Respiratory Rate 20 18 Blood Pressure 135/78 Pulse Oximetry 98 Oxygen Delivery Room Air 02/15/24 02:12 02/15/24 06:00 Temperature 98.9 F Pulse Rate 84 84 Respiratory Rate 18 18 Blood Pressure 92/66 L Pulse Oximetry 99 Oxygen Delivery Intake/Output Intake/Output: Intake & Output 02/12/24 02/13/24 02/14/24 02/15/24 23:59 23:59 23:59 23:59 Intake Total 50 2510 1536 0 Balance 50 2510 1536 0 Meds/Results Medications: Active Medications Generic Name Dose Route Start Last Admin Trade Name Freq PRN Reason Stop Dose Admin Acetaminophen 650 mg 02/12/24 21:30 Acetaminophen 325 Mg Tablet PO Q4H PRN Mild Pain (1-3) or Fever Albuterol 2.5 mg 02/13/24 19:05 Albuterol Sulfate Neb 2.5 Mg/3 Ml Inh INHALATION Q4HRT PRN Shortness Of Breath Albuterol 2.5 mg 02/14/24 20:00 02/15/24 02:03 Albuterol Sulfate Neb 2.5 Mg/3 Ml Inh NEBULIZE 2.5 mg Q6HRT LEXI Administration Fluticasone/Umeclidinium/Vilanterol 1 puff 02/14/24 08:00 02/14/24 08:18 Fluticasone/Umeclidin/Vilanter 100-62.5-25 Mcg Ellipta INHALATION 1 puff DAILYRT LEXI Administration Guaifenesin/Dextromethorphan 10 ml 02/13/24 16:35 Guaifenesin/Dextromethorphan 10 Ml Udc PO Q4H PRN Cough Ceftriaxone Sodium 1 gm in 50 mls @ 100 mls/hr 02/13/24 21:00 02/14/24 22:29 Rocephin 1 Gm/Ns 50 Ml IVPB Infused Q24H LEXI Infusion Azithromycin 500 mg in 250 mls @ 250 mls/hr 02/13/24 21:00 02/14/24 22:59 Zithromax IVPB Infused Q24H LEXI Infusion Perflutren Lipid Microsphere 0 ml 02/13/24 05:07 Perflutren Lipid Microspheres 1.5 Ml Vial Diluted To 10 Ml Total Volume IV PUSH 02/16/24 05:07 ONCE PRN adequate visualization Protocol Radiology Results: ITS Impressions Chest X-Ray 02/12/24 20:22 IMPRESSION: Right upper lobe atelectasis versus pneumonia. Follow-up to resolution is advised to exclude underlying mass. Chest/Abdomen CT 02/13/24 12:33 IMPRESSION: 1. 7.6 cm mass in right lung upper lobe with invasion of right mainstem bronchus, consistent with primary bronchogenic carcinoma. Bronchoscopy is recommended for diagnosis. 2. Mild emphysema and mild chronic interstitial lung disease. Labs Labs: Laboratory Results - last 24 hr 02/15/24 07:12 WBC 15.0 H RBC 3.25 L Hgb 9.7 L Hct 31.3 L MCV 96.3 MCH 29.8 MCHC 31.0 L RDW 14.5 Plt Count 297 MPV 10.1 Immature Gran % (Auto) 0.7 H Neut % (Auto) 77.8 H Lymph % (Auto) 12.2 L [place] % (Auto) 5.1 Eos % (Auto) 3.7 Baso % (Auto) 0.5 Lymph # (Auto) 1.83 [place] # (Auto) 0.8 H Eos # (Auto) 0.6 H Baso # (Auto) 0.1 Abs Immat Gran (auto) 0.11 H Absolute Neuts (auto) 11.7 H Absolute Nucleated RBC 0.000 Nucleated RBC % 0.0 Quality VTE Prophylaxis VTE prophylaxis: mechanical ordered If No VTE Prophylaxis Answer both mechanical and pharmacologic: Reason no mechanical VTE proph: medical contraindication (Bronch tomorrow) 02/14/24; He is on room air, ait well today, had 10 minutes of coughing earlier, no sputum production. He started Trelegy this morning. He has not asked for any albuterol. Excoriated lesions over the left upper, over the lower legs and the arms. He thinks he might have passed inside of his house, not fleas because he has not seen any but he wonders if mice could be biting him. He says that shingles was not the diagnosis, distribution is wrong. 02/13/24; new consult; Jeet Breen is a 73-year-old man admitted with shortness of breath, and chest CT today showed a mass in the RUL 7.6 x 5.6 cm, occluding right upper lobe. This is concerning for pneumonia. He says that a week and a half ago he developed some coughing with clear sputum production, increased shortness of breath, dizziness, and he reports a 35-40 lb weight loss over the last 6-7 weeks. He had an office visit 12/28/2023, his weight was 56 kg and now February 12 his weight is 53 kg so a 3 kg drop over 6-7 weeks, 6.6 lb. In summer September 06, 2023, he weighed 64 kg. 11 kg more than now. He does not have a diagnosis of COPD. He has not required inhalers. He has never had pneumonia. His chart indicates a history of long COVID, he had a positive COVID test November 15, 2019. He becomes short of breath walking from his house to his car, going grocery shopping and returning home. He does not have chest pain or hemoptysis. He does have arthritis and he has had a closed left hip fracture. [place] [address], he has 78% neutrophils. His BNP is 1050. Procalcitonin is 0.2, normal range, not consistent with bacterial pneumonia. His potassium is 3.1, this is being replaced. BUN 11, creatinine 0.9. Na+ 139, calcium 9.9, albumin 3.4, lactic acid 1.6. He lives alone, smoked until this admission, 3-4 cigarettes a day. He has smoked since his teens, at most 3/4 pack per day at most, stopped for a year, re-started for no clear reason. For the last few years, he has smoked 3-4 cigarettes per day. He lives alone, retired from [employer] and [employer]. He has not had exposure to asbestos, silica, fumes, vapors, or other occupational hazards. No enlistment. No family history of lung cancer. Hospitalist MIPS Advance Care Plan I have confirmed that the patient's Advanced Care Plan is present, code status is documented, or surrogate decision maker is listed in patient medical record.: Yes Medication Reconciliation I have utilized all available resources to obtain, update and review the patients current medications (includes all prescriptions, OTC, herbals, cannabis, and nutritional supplements).: Yes
[2024-02-15 08:24] LABS: Anion Gap 3 mmol/L (4-12); Blood Urea Nitrogen 17 mg/dL (9-20); Calcium 9.9 mg/dL (8.4-10.2); Carbon Dioxide 31 mmol/L (22-30); Chloride 102 mmol/L (98-107); Estimated CRCL calculation 39 ml/min; Estimated Glomerular Filt Rate > 60; Glucose 99 mg/dL (65-110); Potassium 4.3 mmol/L (3.4-5.0); Sodium 136 mmol/L (137-145)
[2024-02-15] MEDS: FLUTICASONE/UMECLIDIN/VILANTER 100-62.5-25 MCG ELLIPTA 1 PUFF INHALATION (08:24)
[2024-02-15] MEDS: AZITHROMYCIN 500 MG/NS 250 ML 500 MG/250 ML BAG 250 MG IVPB (20:42)
[2024-02-15] MEDS: SODIUM CHLORIDE 0.9% IV 1,000 ML 100 ML IV CONT (20:43)
--- NOTE | 2024-02-15 22:46 | P.PNPL_ITS ---
Subjective Date/time seen: 02/15/24 22:46 Interval history: 02/15/24; He remains on room air, planning for bronch tomorrow morning for the RUL mass obstructing the RUL bronchus. No fever. WBC 15 k, mid range. He is on ceftrixone and azithromycin for empiric treatment of CAP/post obstructive pneumonia. 02/14/24; He is on room air, ate well today, had 10 minutes of coughing earlier, no sputum production. He started Trelegy this morning. He has not asked for any albuterol. Excoriated lesions over the left upper, over the lower legs and the arms. He thinks he might have passed inside of his house, not fleas because he has not seen any but he wonders if mice could be biting him. He says that shingles was not the diagnosis, distribution is wrong. 02/13/24; new consult; Jeet Breen is a 73-year-old man admitted with shortness of breath, and chest CT today showed a mass in the RUL 7.6 x 5.6 cm, occluding right upper lobe. This is concerning for pneumonia. He says that a week and a half ago he developed some coughing with clear sputum production, increased shortness of breath, dizziness, and he reports a 35-40 lb weight loss over the last 6-7 weeks. He had an office visit 12/28/2023, his weight was 56 kg and now February 12 his weight is 53 kg so a 3 kg drop over 6-7 weeks, 6.6 lb. In summer September 06, 2023, he weighed 64 kg. 11 kg more than now. He does not have a diagnosis of COPD. He has not required inhalers. He has never had pneumonia. His chart indicates a history of long COVID, he had a positive COVID test November 15, 2019. He becomes short of breath walking from his house to his car, going grocery shopping and returning home. He does not have chest pain or hemoptysis. He does have arthritis and he has had a closed left hip fracture. [place] was [place] [address], he has 78% neutrophils. His BNP is 1050. Procalcitonin is 0.2, normal range, not consistent with bacterial pneumonia. His potassium is 3.1, this is being replaced. BUN 11, creatinine 0.9. Na+ 139, calcium 9.9, albumin 3.4, lactic acid 1.6. He lives alone, smoked until this admission, 3-4 cigarettes a day. He has smoked since his teens, at most 3/4 pack per day at most, stopped for a year, re- started for no clear reason. For the last few years, he has smoked 3-4 cigarettes per day. He lives alone, retired from packing and shipping switches for [employer]. He has not had exposure to asbestos, silica, fumes, vapors, or other occupational hazards. No enlistment. No family history of lung cancer. PMH: hypertension, hyperlipidemia, closed left hip fracture. DATA * 02/13/2024; chest CT; There is mild emphysema. There are scattered peripheral reticular opacities in the lungs, likely chronic. There is mild bronchiectasis in the inferior lungs. There is a 7.6 x 5.6 cm mass in right lung upper lobe with occlusion of the right upper lobe bronchus and invasion of the right mainstem bronchus. There is collapse of right lung upper lobe. No pleural effusion. The heart size is normal. There are coronary artery calcifications. No pericardial effusion. There is kyphosis of thoracic spine. There are bridging endplate osteophytes at multiple levels in the spine, consistent with diffuse idiopathic skeletal hyperostosis (DISH). There are old healed right rib fractures. ABDOMEN CT: The liver demonstrates focal steatosis at the hilum. The gallbladder is normal. There is a 7 mm hypodense mass in the peripheral spleen, likely benign. The pancreas and adrenal glands are normal. There are cysts in the kidneys measuring up to 2.4 cm on the left. There is a 4 mm stone in right kidney. There are 2 stones in left kidney measuring up to 5 mm. There are no dilated loops of bowel. There are no pathologically enlarged lymph nodes. There is no free intraperitoneal fluid. There is a chronic compression fracture of L1. There is severe lower lumbar spondylosis. IMPRESSION: 1. 7.6 cm mass in right lung upper lobe with invasion of right mainstem bronchus, consistent with primary bronchogenic carcinoma. Bronchoscopy is recommended for diagnosis. 2. Mild emphysema and mild chronic interstitial lung disease. Objective Data Vital Signs Vital Signs: Vital Signs - 24 hr 02/15/24 02:04 02/15/24 02:12 02/15/24 06:00 Temperature 37.2 C Pulse Rate 83 84 84 Respiratory Rate 18 18 18 Blood Pressure 92/66 L Pulse Oximetry 99 Oxygen Delivery 02/15/24 08:24 02/15/24 08:32 02/15/24 08:00 Temperature Pulse Rate 90 88 Respiratory Rate 18 18 Blood Pressure Pulse Oximetry Oxygen Delivery Room Air 02/15/24 13:51 02/15/24 13:58 02/15/24 14:00 Temperature 36.9 C Pulse Rate 81 78 88 Respiratory Rate 18 18 18 Blood Pressure 145/65 H Pulse Oximetry 100 Oxygen Delivery 02/15/24 19:58 02/15/24 20:01 02/15/24 20:08 Temperature Pulse Rate 86 86 82 Respiratory Rate 18 18 Blood Pressure Pulse Oximetry 96 Oxygen Delivery Room Air 02/15/24 21:14 02/15/24 20:00 Temperature 36.9 C Pulse Rate 91 91 Respiratory Rate 16 16 Blood Pressure 117/68 Pulse Oximetry 99 99 Oxygen Delivery Room Air Intake/Output Intake/Output: Intake & Output 02/12/24 02/13/24 02/14/24 02/15/24 23:59 23:59 23:59 23:59 Intake Total 50 2510 1536 2660 Balance 50 2510 1536 2660 Meds/Results Medications: Active Medications Generic Name Dose Route Start Last Admin Trade Name Freq PRN Reason Stop Dose Admin Acetaminophen 650 mg 02/12/24 21:30 Acetaminophen 325 Mg Tablet PO Q4H PRN Mild Pain (1-3) or Fever Albuterol 2.5 mg 02/13/24 19:05 Albuterol Sulfate Neb 2.5 Mg/3 Ml Inh INHALATION Q4HRT PRN Shortness Of Breath Albuterol 2.5 mg 02/14/24 20:00 02/15/24 19:58 Albuterol Sulfate Neb 2.5 Mg/3 Ml Inh NEBULIZE 2.5 mg Q6HRT LEXI Administration Fluticasone/Umeclidinium/Vilanterol 1 puff 02/14/24 08:00 02/15/24 08:24 Fluticasone/Umeclidin/Vilanter 100-62.5-25 Mcg Ellipta INHALATION 1 puff DAILYRT LEXI Administration Guaifenesin/Dextromethorphan 10 ml 02/13/24 16:35 Guaifenesin/Dextromethorphan 10 Ml Udc PO Q4H PRN Cough Ceftriaxone Sodium 1 gm in 50 mls @ 100 mls/hr 02/13/24 21:00 02/15/24 20:43 Rocephin 1 Gm/Ns 50 Ml IVPB 100 mls/hr Q24H LEXI Administration Azithromycin 500 mg in 250 mls @ 250 mls/hr 02/13/24 21:00 02/15/24 20:42 Zithromax IVPB 250 mls/hr Q24H LEXI Administration Sodium Chloride 1,000 mls @ 100 mls/hr 02/16/24 00:01 02/15/24 20:43 Normal Saline Iv IV CONT 100 mls/hr .Q10H LEXI Administration Perflutren Lipid Microsphere 0 ml 02/13/24 05:07 Perflutren Lipid Microspheres 1.5 Ml Vial Diluted To 10 Ml Total Volume IV PUSH 02/16/24 05:07 ONCE PRN adequate visualization Protocol Radiology Results: ITS Impressions Chest X-Ray 02/12/24 20:22 IMPRESSION: Right upper lobe atelectasis versus pneumonia. Follow-up to resolution is advised to exclude underlying mass. Chest/Abdomen CT 02/13/24 12:33 IMPRESSION: 1. 7.6 cm mass in right lung upper lobe with invasion of right mainstem bronchus, consistent with primary bronchogenic carcinoma. Bronchoscopy is recommended for diagnosis. 2. Mild emphysema and mild chronic interstitial lung disease. Labs Labs: Laboratory Results - last 24 hr 02/15/24 07:12 WBC 15.0 H RBC 3.25 L Hgb 9.7 L Hct 31.3 L MCV 96.3 MCH 29.8 MCHC 31.0 L RDW 14.5 Plt Count 297 MPV 10.1 Immature Gran % (Auto) 0.7 H Neut % (Auto) 77.8 H Lymph % (Auto) 12.2 L [place] % (Auto) 5.1 Eos % (Auto) 3.7 Baso % (Auto) 0.5 Lymph # (Auto) 1.83 [place] # (Auto) 0.8 H Eos # (Auto) 0.6 H Baso # (Auto) 0.1 Abs Immat Gran (auto) 0.11 H Absolute Neuts (auto) 11.7 H Absolute Nucleated RBC 0.000 Nucleated RBC % 0.0 Sodium 136 L Potassium 4.3 Chloride 102 Carbon Dioxide 31 H Anion Gap 3 L BUN 17 Creatinine 1.10 Estim Creat Clear Calc 39 Estimated GFR > 60 Glucose 99 Calcium 9.9
[2024-02-16] VITALS (13 sets, daily range): BP systolic 93–141; BP diastolic 55–66; PULSE 69–95; RESP 14–23; TEMP 36.4–37; O2SAT 98–100
[2024-02-16 06:41] LABS: Basophils Absolute Auto 0.1 K/mm3 (0.0-0.1); Basophils Percent Auto 0.4 % (0.2-1.2); Eosinophils Absolute Auto 0.5 K/mm3 (0-0.3); Eosinophils Percent Auto 3.6 % (0-4.4); Hematocrit 28.4 % (42.0-52.0); Hemoglobin 9.2 g/dL (14.0-18.0); Immature Granulocyte Absolute 0.08 K/mm3 (0.00-0.031); Immature Granulocyte Percent A 0.6 % (0-0.5); Lymphocytes Absolute Auto 1.57 K/mm3 (0.9-3.2); Lymphocytes Percent Auto 12.7 % (18.3-44.2); Mean Corpuscular HGB Conc 32.4 g/dl (32-36); Mean Corpuscular Hemoglobin 30.9 pg (26-34); Mean Corpuscular Volume 95.3 fl (80-100); Monocytes Absolute Auto 0.7 K/mm3 (0.1-0.6); Monocytes Percent Auto 5.5 % (2.6-8.5); Neutrophils Absolute Auto 9.5 K/mm3 (1.3-6.7); Neutrophils Percent Auto 77.2 % (45.5-73.1); Platelet Count Result 257 k/mm3 (150-375); Red Blood Count 2.98 M/mm3 (4.6-6.20); Red Cell Distribution Width 14.6 % (11.5-14.5); White Blood Count 12.4 K/mm3 (4.5-10.0)
[2024-02-16 06:59] LABS: Anion Gap 4 mmol/L (4-12); Blood Urea Nitrogen 16 mg/dL (9-20); Calcium 9.5 mg/dL (8.4-10.2); Carbon Dioxide 28 mmol/L (22-30); Chloride 106 mmol/L (98-107); Estimated CRCL calculation 47 ml/min; Estimated Glomerular Filt Rate > 60; Glucose 101 mg/dL (65-110); Potassium 3.7 mmol/L (3.4-5.0); Sodium 138 mmol/L (137-145)
[2024-02-16] MEDS: FLUTICASONE/UMECLIDIN/VILANTER 100-62.5-25 MCG ELLIPTA 1 PUFF INHALATION (07:15)
[2024-02-16] MEDS: ALBUTEROL SULFATE NEB 2.5 MG/3 ML INH NEBULIZE ×2 (07:15→13:52)
[2024-02-16] MEDS: LACTATED RINGERS 1,000 ML 150 ML IV CONT (08:40)
--- NOTE | 2024-02-16 09:01 | WPDANESEPPF ---
Anes - Initial Pre Proc Eval Procedure: Operation Date: 02/16/24 09:00 Proposed Procedures p Flexible Bronchoscopy - Anahi Robins MD Date/Time: 02/16/24 09:01 Surgeon: Jason [place] MD Pre Op Diagnosis: Right upper lobe pneumonia Patient Data Age: 73 Gender: M Height: 1.73 m Weight: 53 kg Last Vital Signs Temp 97.5 F L 02/16/24 08:30 Pulse 90 02/16/24 08:30 Resp 16 02/16/24 08:30 BP 125/58 L 02/16/24 08:30 Pulse Ox 98 02/16/24 08:30 O2 Del Method Room Air 02/16/24 08:30 Allergies Allergy/AdvReac Type Severity Reaction Status Date / Time No Known Allergies Allergy Verified 02/16/24 08:27 Home Medications Medication Instructions Recorded Confirmed Type mecobalamin (vitamin B12) 1,000 1,000 mcg sublingual DAILY #1 01/04/21 02/12/24 Rx mcg disintegrating tablet tablet,sublingual losartan 100 mg tablet 100 mg PO DAILY #90 tabs 12/28/23 02/12/24 Rx Laboratory Tests 02/16/24 06:15 WBC 12.4 H K/mm3 (4.5-10.0) RBC 2.98 L M/mm3 (4.6-6.20) Hgb 9.2 L g/dL (14.0-18.0) Hct 28.4 L % (42.0-52.0) MCV 95.3 fl (80-100) MCH 30.9 pg (26-34) MCHC 32.4 g/dl (32-36) RDW 14.6 H % (11.5-14.5) Plt Count 257 k/mm3 (150-375) MPV 10.0 fl (7.4-10.4) Immature Gran % (Auto) 0.6 H % (0-0.5) Neut % (Auto) 77.2 H % (45.5-73.1) Lymph % (Auto) 12.7 L % (18.3-44.2) [place] % (Auto) 5.5 % (2.6-8.5) Eos % (Auto) 3.6 % (0-4.4) Baso % (Auto) 0.4 % (0.2-1.2) Lymph # (Auto) 1.57 K/mm3 (0.9-3.2) [place] # (Auto) 0.7 H K/mm3 (0.1-0.6) Eos # (Auto) 0.5 H K/mm3 (0-0.3) Baso # (Auto) 0.1 K/mm3 (0.0-0.1) Abs Immat Gran (auto) 0.08 H K/mm3 (0.00-0.031) Absolute Neuts (auto) 9.5 H K/mm3 (1.3-6.7) Absolute Nucleated RBC 0.000 K/mm3 (0.0-0.012) Nucleated RBC % 0.0 % (0.0-0.2) Sodium 138 mmol/L (137-145) Potassium 3.7 mmol/L (3.4-5.0) Chloride 106 mmol/L (98-107) Carbon Dioxide 28 mmol/L (22-30) Anion Gap 4 mmol/L (4-12) BUN 16 mg/dL (9-20) Creatinine 0.90 mg/dL (0.7-1.3) Estim Creat Clear Calc 47 ml/min Estimated GFR > 60 (59 - ) Glucose 101 mg/dL (65-110) Calcium 9.5 mg/dL (8.4-10.2) Patient hx anesthesia problems: none Family hx anesthesia problems: none Results Review: All pre-operative results and documents have been reviewed as part of the pre-operative evaluation. [facility]LY [facility] Past Medical History Medical History Abnormal chest xray Closed hip fracture Closed left hip fracture COVID-19 COVID-19 virus RNA detected (11/15/19) Femoral neck fracture Hypertension Overweight (BMI 25.0-29.9) Tobacco dependence Surgical History Surgical History History of left hip replacement 2020 Family History Family History Other No significant family history Social History Social History Social History: Surrogate decision maker: brandi Justin. Code status: Full code. Smoking packs per day: 0.1 Smoking cigarettes per day: 2.0 Years smoked: 50 Smoking pack-years: 5.00 Smoking status: Current some day smoker Second hand tobacco smoke exposure: No Alcohol intake: former Alcohol use details: social Substance use: never Substance use type: does not use Do You Feel Safe in your Home?: Yes Lack of Transportation: No Lack of Food: Never True Current Housing: I Have Housing Concerned About Future Housing: No Difficulty Paying Gas/Electric Bills: No Difficulty Paying for Meds: No Currently Unemployed: No Education: High School Diploma/GED Difficulty w/ Childcare or Family Care: No Living arrangements: alone Additional living arrangements comments: Lives in his own home in [place]. Additional occupation/education comments: Retired. Gender identity (if verbalized by the patient): Male Sexual Orientation (if Verbalized by the Patient): Straight or Heterosexual Spiritual care concerns: No Agree to blood products: No Anes - Eval Final PreProcedure Day of Procedure 02/16/24 09:01 Patient weight: normal Heart: regular rate and rhythm Lungs: clear to auscultation and decreased breath sounds Airway: Mallampati scale and special considerations (Upper edentulous, lower incisor loose. ) Neurological: alert and oriented Last oral intake: >/= 8 hours ASA classification: III Emergent: no Anesthetic plan: proceed Anesthesia type and monitoring: general ETT and standard monitoring Results Review: All pre-operative results and documents have been reviewed as part of the pre-operative evaluation. Notes reviewed from pulmonology and pt with normal breath sounds at this time. Informed Consent: The patient's anesthetic plan and its attendant risks and benefits were discussed with the patient/family/POA. Questions were solicited and answers provided to the satisfaction of the patient/family/POA.
--- NOTE | 2024-02-16 09:12 | WPDHPUPDATE1 ---
History and Physical Update Update Date/Time: 02/16/24 09:12 History and Physical has been reviewed, including an updated exam of the patient. There are NO changes in the patient's condition. Risks, benefits, and alternatives have been discussed and questions answered. Patient agrees to proceed with procedure.
[2024-02-16] MEDS: LIDOCAINE HCL 2% LOCAL INJ 20 ML VIAL 4 ML INFILTRATE (10:17)
[2024-02-16] MEDS: LIDO 1%/EPINEPHRINE/PF 1:200,000 30 ML VIAL 4 ML XX (10:18)
[2024-02-16] MEDS: SODIUM CHLORIDE 0.9% IV 500 ML BAG 25 ML IRRIGATION (10:37)
[2024-02-16 11:47] LABS: Source Bronchial Fluid Bronchial Washings
[2024-02-16 11:48] LABS: Appearance Bronchial Fluid Turbid; Color Bronchial Fluid Red; Eosinophils Bronchial Fluid 2 %; Lymphocytes Bronchial Fluid 19 %; Macrophages Bronchial Fluid 12; Monocytes Bronchial Fluid 5 %; Neutrophils Bronchial Fluid 62 %; Other Cells Bronchial Fluid 0 %
[2024-02-16] MEDS: SODIUM CHLORIDE 0.9% IV 1,000 ML 100 ML IV CONT (12:13)
--- NOTE | 2024-02-16 12:25 | PM.DS ---
DS: Admitting Diagnosis Discharge Date 02/16/2024 Admitting Diagnosis RUL pneumonia, acute bacterial sinusitis DS: Discharge Diagnosis Discharge Diagnosis (1) Right upper lobe pneumonia: Code(s): J18.9 - Pneumonia, unspecified organism Status: Acute (2) Leukocytosis: Code(s): D72.829 - Elevated white blood cell count, unspecified Status: Acute (3) Acute bacterial sinusitis: Code(s): J01.90 - Acute sinusitis, unspecified; B96.89 - Other specified bacterial agents as the cause of diseases classified elsewhere Status: Acute (4) Hypertension: Qualifiers: Hypertension type: essential hypertension Qualified Code(s): I10 - Essential (primary) hypertension Code(s): I10 - Essential (primary) hypertension Status: Acute (5) Hypokalemia: Code(s): E87.6 - Hypokalemia Status: Acute (6) Malnutrition: Code(s): E46 - Unspecified protein-calorie malnutrition Status: Acute (7) Lung mass: Code(s): R91.8 - Other nonspecific abnormal finding of lung field Status: Acute (8) Emphysema of lung: Code(s): J43.9 - Emphysema, unspecified Status: Acute (9) Tobacco dependence: Code(s): F17.200 - Nicotine dependence, unspecified, uncomplicated Status: Acute (10) Weight loss, unintentional: Code(s): R63.4 - Abnormal weight loss Status: Acute DS: Summary Hospital Course Reason for hospitalization: dyspnea, pneumonia with failure of outpatient antibiotics Hospital Course: Patient admitted for failure of outpatient antibiotics for ongoing RUL pneumonia. Unfortunately, CT scan showed that this is most likely a combination of mass and atelectasis rather than a straightforward pneumonia. Patient started on IV antibiotics. Pulmonology was consulted and they proceeded with bronchoscopy to obtain biopsy today on 02/15. Shortly after arriving back to room patient was demanding to leave by tomorrow morning, moreso wanting to leave today. I discussed with him that I needed to talk with Pulmonology. In the meantime, Dr. Robins stated he COULD be discharged if he really wanted. Before I had a chance to update anyone, patient began to be extremely mean to nursing staff and threatening to cause a ruckus if I did not get back into his room immediately. I went to speak with patient and he began yelling at me stating I didn't come back fast enough. About 1 hour or less had elapsed. Patient was informed that he would be discharged home but it would take a little while to get everything together. Patient also informed that he would need follow up with Pulmonology and probably Oncology. He stated you can't do anything for me here. The one who did the procedure already said it is non-operable. I explained to patient that this would mean he would likely need chemotherapy and/or radiation at which point he replied saying my primary will give that to me. Time spent discussing smoking cessation with patient: 3 to 10 minutes Status at Discharge Cognitive/behavioral status at discharge: awake, alert, oriented, allan and demanding, not in the frame of mind to receive teaching or guidance Functional status at discharge: independent ambulation Overall status at discharge: patient is progressing back to baseline Time Spent with Patient Time attestation: Total time spent providing and/or coordinating discharge services: 60 minutes Time spent: Greater than 30 minutes Exam Narrative: General: Frail and thin appearing HEENT: Atraumatic, PERRL, EOM, anicteric, moist mucosa. NECK: Supple. Lungs: Diminished to RUL. Heart: RRR, no murmurs. Abdomen: Soft, non-tender, non-distended, positive bowel sounds X4 quadrants. Extremities: Acyanotic, no edema. Neuro: oriented, CN II-XII grossly intact. Psych: Allan, demanding, hostile and threatening DS: Data Data Completed and Pending Pending studies at discharge: Pending at discharge 02/16/24 10:07 Cytology [PTH] Routine 02/16/24 10:10 Surgical [PTH] Routine Labs on day of discharge: Labs from last 24 hours 02/16/24 02/16/24 10:26 06:15 WBC 12.4 H RBC 2.98 L Hgb 9.2 L Hct 28.4 L MCV 95.3 MCH 30.9 MCHC 32.4 RDW 14.6 H Plt Count 257 MPV 10.0 Immature Gran % (Auto) 0.6 H Neut % (Auto) 77.2 H Lymph % (Auto) 12.7 L [place] % (Auto) 5.5 Eos % (Auto) 3.6 Baso % (Auto) 0.4 Lymph # (Auto) 1.57 [place] # (Auto) 0.7 H Eos # (Auto) 0.5 H Baso # (Auto) 0.1 Abs Immat Gran (auto) 0.08 H Absolute Neuts (auto) 9.5 H Absolute Nucleated RBC 0.000 Nucleated RBC % 0.0 Sodium 138 Potassium 3.7 Chloride 106 Carbon Dioxide 28 Anion Gap 4 BUN 16 Creatinine 0.90 Estim Creat Clear Calc 47 Estimated GFR > 60 Glucose 101 Calcium 9.5 Bronch Specimen Source Bronchial washings Bronchial Fluid Color Red Bronchial Fluid Appearance Turbid Bronchial Neutrophils 62 Bronchial Lymphocytes 19 Bronchial Monocytes 5 Bronchial Eosinophils 2 Bronchial Macrophages 12 Bronchial Other Cells 0 Preliminary micro results at discharge 02/12/24 21:43 Blood Culture - Preliminary Blood 02/12/24 21:44 Blood Culture - Preliminary Blood Procedures/Treatments: Bronchoscopy on 02/15 with biopsies Imaging Radiologist's impression: EXAMINATION: XR chest 1V portable DATE: 02/16/2024 10:33 INDICATION: Right lung mass status post bronchoscopy. TECHNIQUE: A single frontal view of the chest was obtained on 2 radiographs. COMPARISON: Chest 2 views 02/12/2024, chest CT 02/13/2024 FINDINGS: There are chronic reticular opacities in the lower lung zones. There is complete opacification of right lung upper lobe with volume loss. No pleural effusion or pneumothorax. The heart size is normal. IMPRESSION: 1. Stable complete opacification of right lung upper lobe with volume loss, consistent with malignancy and atelectasis. 2. Mild chronic interstitial lung disease. Reviewed, dictated and finalized at location A. 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 You had biopsy samples taken today and should get a call with results in 7-10 days. You will likely be referred to Oncology for follow up to discuss treatment options such as chemotherapy and/or radiation. Please follow up with your primary care provider as well. Patient Instructions: Antibiotic Form, Pain Management (DC) Stand Alone Forms: General Discharge Information Follow-up/Referrals: Anahi Robins MD [Physician] - Call for Appointment Rafy Bueno MD [Primary Care Provider] - Follow Up with Primary Dr Discharge Medications: New Trelegy Ellipta 100-62.5-25 mcg Blister With Device 1 inh inhalation DAILYRT Qty: 60 0RF amoxicillin-pot clavulanate 875-125 mg tablet 1 tablet PO Q12H Qty: 10 0RF azithromycin 500 mg tablet 500 mg PO DAILY 3 Days Qty: 3 0RF Continued mecobalamin (vitamin B12) 1,000 mcg tablet,disintegrating 1,000 mcg sublingual DAILY Qty: 1 0RF Rx Instructions: place tablet under tongue and allow to dissolve for at least30 secs before swallowing losartan 100 mg tablet 100 mg PO DAILY Qty: 90 3RF Date of admission: 02/14/24 09:32 Primary Care Provider: Rafy Bueno Admitting Provider: Jaosn [place] Attending physician on admission: Jason [place] Condition: Serious Quality VTE Prophylaxis VTE prophylaxis: mechanical ordered Hospitalist MIPS Heart Failure (Exclusion) Patient has history of Heart Transplant or Left Ventricular Assistive Device?: No IF YES, STOP HERE Heart Failure (Qualifier) Patient has current or prior documentation of LVEF less than or equal to 40%, or mod/servere depressed LVSF?: No IF NO, STOP HERE
--- NOTE | 2024-02-19 11:24 | PC.NURSE ---
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 desk maker at Dr. Robins's office to send this message to Dr. Robins.
== END 2024-02-16 14:35 | disposition home or self-care (01) | DRG 180 ==
LOC: ANHED 21:32 → ANH3MEDSUR 22:39
PROVIDERS: Internal Medicine Critical Care Medicine; Nurse Practitioner Adult Health; Admitting Provider Internal Medicine; Emergency Provider Emergency Medicine; PCP Family Medicine Adolescent Medicine; Visit Provider Internal Medicine
PROC: 0BJ08ZZ Inspection of Tracheobronchial Tree, Via Natural or Artificial Opening Endoscopic (ICD-10-PCS; CPT 31622; principal; 2024-02-16 09:00)
DX: C34.11 Malignant neoplasm of upper lobe, right bronchus or lung (principal); J18.9 Pneumonia, unspecified organism; E46 Unspecified protein-calorie malnutrition; Z68.1 Body mass index [BMI] 19.9 or less, adult; I10 Essential (primary) hypertension; J01.90 Acute sinusitis, unspecified; B96.89 Other specified bacterial agents as the cause of diseases classified elsewhere; E87.6 Hypokalemia; J43.9 Emphysema, unspecified; E78.5 Hyperlipidemia, unspecified; D72.829 Elevated white blood cell count, unspecified; Z96.642 Presence of left artificial hip joint; F17.210 Nicotine dependence, cigarettes, uncomplicated; Z86.16 Personal history of COVID-19
CPT/HCPCS: 36415; 71045; 71046; 71260; 74160; 80048; 80053; 81003; 83605; 83690; 83735; 83880; 84145; 84484; 85025; 85999; 87015; 87040; 87070; 87102; 87116; 87205; 87206; 87637; 88108; 88160; 88305; 93005; 93306; 94640; 96365; 96375; 96376; 99285; A9270; G0378; J0456; J0696; J2003; J2004; J2405; J2704; J7030; J7040; J7120; Q9967